=== PATIENT | female | born 1935 | race Caucasian/White ===

== ENCOUNTER 2022-03-02 17:53 | Emergency (ER) | payer OTHER ==
[2022-03-02] MEDS ORDERED: MORPHINE 2 MG/ML SYR ONE ×2 (18:19→20:05)
[2022-03-02] MEDS ORDERED: ONDANSETRON 4 MG/2 ML VIAL ONE (18:19)
[2022-03-02 18:27] LABS: Absolute Lymphocytes (CBC) 0.9 K/uL (0.7-4.9); Hematocrit 30.7 % (36.0-45.0); Lymphocytes % 11.6 % (15.3-44.8); MCV 90.8 fL (80-100); MPV 7.8 fL (7.6-11.3); RBC Red Blood Cell Count 3.38 M/uL (3.86-4.86)
[2022-03-02 18:30] LABS: Protime INR 1.05
[2022-03-02 18:42] LABS: Albumin 3.5 g/dL (3.4-5.0); Bilirubin Direct 0.1 mg/dL (0-0.2); Bilirubin Total 0.4 mg/dL (0.2-1.0); Potassium 4.6 mmol/L (3.5-5.1); Protein, Total 6.5 g/dL (6.4-8.2); Troponin High Sensitivity 18.6 pg/mL (<58.9)
--- NOTE | 2022-03-02 19:08 | RAD REPORT ---
EXAM DESCRIPTION: RAD - Humerus Right - 03/02/2022 6:49 pm CLINICAL HISTORY: PAIN COMPARISON: No comparisons FINDINGS: No acute fracture or dislocation seen.
--- NOTE | 2022-03-02 19:08 | RAD REPORT ---
EXAM DESCRIPTION: RAD - Humerus Left - 03/02/2022 6:50 pm CLINICAL HISTORY: PAIN COMPARISON: No comparisons FINDINGS: Mildly displaced fracture of the distal clavicle is seen. No dislocation evident. Questionable fracture of the medial epicondyle of the distal humerus, correlation with point tenderne ss in this region would be recommended.
--- NOTE | 2022-03-02 19:09 | RAD REPORT ---
EXAM DESCRIPTION: RAD - Femur Left - 03/02/2022 6:50 pm CLINICAL HISTORY: PAIN COMPARISON: No comparisons FINDINGS: No acute fracture or dislocation seen.
[2022-03-02] MEDS ORDERED: NA CHLORIDE 0.9% 500 ML ONE (19:16)
--- NOTE | 2022-03-02 19:51 | RAD REPORT ---
EXAM DESCRIPTION: CT - Head C Spine Cap Wo Con - 03/02/2022 7:34 pm CLINICAL HISTORY: Trauma, head and neck injury. Chest, abdomen and pelvis pain. fall/syncope, head/neck/pelvic pain COMPARISON: No comparisons TECHNIQUE: CT head without contrast. CT cervical spine without contrast with coronal and sagittal reformatted images. CT chest, abdomen and pelvis without contrast with coronal and sagittal reformatted images of the [facility]. All CT scans are performed using dose optimization technique as appropriate and may include automated exposure control or mA/KV adjustment according to patient size. FINDINGS: CT HEAD WITHOUT CONTRAST: No intracranial hemorrhage, hydrocephalus or extra-axial fluid collection. Moderate generalized brain atrophy is present with moderate periventricular and deep white matter chronic microvascular ischemi c changes. No areas of brain edema or midline shift. The paranasal sinuses and mastoids are clear. The calvarium is intact. Small left scalp hematoma. [place] tebral atherosclerosis. CT CERVICAL SPINE WITHOUT CONTRAST: No fracture or subluxation. Mild lower cervical degenerative changes. The prevertebral soft tissues a re normal in thickness. CT CHEST, ABDOMEN, PELVIS WITHOUT CONTRAST: NOTE: Lack of contrast is a significant limitation in the assessment of trauma related findings. Spec ifically, solid organ, vascular and bowel evaluation is significantly limited. The lungs are clear.No pneumothorax or pericardial/pleural fluid. No evidence of intra-abdominal visceral injury, free fluid or free air is seen within the above detai led limitations. No concerning pelvic findings. Mild fracture of the distal left clavicle is seen. Moderate soft tissue swelling adjacent to the left greater trochanter. IMPRESSION: Mildly displaced fracture is present affecting the distal left clavicle. Elsewhere, no t rauma related abnormality is discerned.
--- NOTE | 2022-03-02 20:08 | EDPHYS ---
Physician Documentation [facility] Name: Vickie Santiago Age: 86 yrs Sex: Female : 1935 Arrival Date: 03/02/2022 Time: 17:55 Bed 4 Private MD: ED Physician Brody Viera HPI: 03/02 18:00 This 86 yrs old Female presents to ER via Ambulatory with complaints of Fall Injury. rn 18:00 Onset: The symptoms/episode began/occurred just prior to arrival. Associated injuries: rn The patient sustained injury to the head, neck injury, left hip, right shoulder/arm, left shoulder. Severity of symptoms: At their worst the symptoms were moderate, in the emergency department the symptoms are unchanged. The patient has not experienced similar symptoms in the past. The patient has not recently seen a physician. Pt does not recall what happened, woke up on floor, not sure if fell then passed out or passed out then fell. Reports pain to head/neck/shoulder/left hip. . Historical: - Allergies: 19:58 No Known Allergies; jb4 - Home Meds: 17:59 Unable to obtain [Active]; jl7 - PMHx: 19:58 Dementia; HTN; COPD; Heart murmur; CHF; Macular degeneration; NSTEMI; Anxiety; jb4 HyperLipidemia; Acute Kidney Failure; Vit D deficiency; - PSHx: 17:59 Unable to Obtain; jl7 - Immunization history:: Adult Immunizations unknown. - Social history:: Smoking status: unknown. - Family history:: not pertinent. - Hospitalizations: : No recent hospitalization is reported. ROS: 18:00 Constitutional: Negative for fever, chills, and weight loss, Eyes: Negative for injury, rn pain, redness, and discharge, Neck: + neck pain Cardiovascular: Negative for chest pain, palpitations, and edema, Respiratory: Negative for shortness of breath, cough, wheezing, and pleuritic chest pain, Abdomen/GI: Negative for abdominal pain, nausea, vomiting, diarrhea, and constipation, Back: Negative for injury and pain, MS/Extremity: + left and right shoulder pain, + left hip pain Skin: Negative for injury, rash, and discoloration, Neuro: Negative for numbness, tingling, and seizure. Exam: 18:00 Constitutional: This is a well developed, well nourished patient who is awake, alert, rn and in no acute distress. Head/Face: Normocephalic, atraumatic. Eyes: Periorbital areas with no swelling, redness, or edema. ENT: dry MM, no oral trauma Neck: no midline tenderness Cardiovascular: Regular rate and rhythm. No pulse deficits. Respiratory: No increased work of breathing, no retractions or nasal flaring. Abdomen/GI: Soft, non-tender Back: No spinal tenderness. Skin: Warm, dry MS/ Extremity: Pulses equal, no cyanosis. + mild painful ROM left and right shoulder, no deformity, + left hip pain and painful ROM. Neuro: Awake and alert, GCS 15 19:56 ECG was reviewed by the Attending Physician. [facility] Vital Signs: 19:51 BP 148 / 73; Pulse 68; Resp 16 S; Temp 97.9(O); Pulse Ox 99% on R/A; as6 20:30 BP 153 / 84; Pulse 79; Resp 12; Pulse Ox 99% on R/A; jb4 Angelica Coma Score: 19:10 Eye Response: spontaneous(4). Verbal Response: oriented(5). Motor Response: obeys jb4 commands(6). Total: 15. 20:00 Eye Response: spontaneous(4). Verbal Response: oriented(5). Motor Response: obeys jb4 commands(6). Total: 15. Trauma Score (Adult): 19:10 Eye Response: spontaneous(1); Verbal Response: confused(1); Motor Response: obeys jb4 commands(2); Systolic BP: > 89 mm Hg(4); Respiratory Rate: 10 to 29 per min(4); [place] Score: 14; Trauma Score: 12 20:00 Eye Response: spontaneous(1); Verbal Response: confused(1); Motor Response: obeys jb4 commands(2); Systolic BP: > 89 mm Hg(4); Respiratory Rate: 10 to 29 per min(4); Angelica Score: 14; Trauma Score: 12 MDM: 17:56 Patient medically screened. rn 19:49 Differential diagnosis: closed head injury, contusion, fracture, laceration, multiple mattie trauma, sprain, strain. Data reviewed: vital signs, nurses notes, lab test result(s), EKG, radiologic studies, CT scan, plain films. Data interpreted: school lunch monitor: rate is 85 beats/min, rhythm is regular, Pulse oximetry: on room air is 99 %. Test interpretation: by ED physician or midlevel provider: ECG, plain radiologic studies. Counseling: I had a detailed discussion with the patient and/or guardian regarding: the historical points, exam findings, and any diagnostic results supporting the discharge/admit diagnosis, lab results, radiology results, the need for further work-up and treatment in the hospital. 03/02 17:59 Order name: Basic Metabolic Panel; Complete Time: 18:43 rn 03/02 17:59 Order name: CBC with Diff; Complete Time: 18:43 rn 08 18:00 Order name: CPK; Complete Time: 18:43 rn 08 18:00 Order name: Hepatic Function; Complete Time: 18:43 rn 08 18:00 Order name: Protime (+inr); Complete Time: 18:43 rn 08 18:00 Order name: Ptt, Activated; Complete Time: 18:43 rn 03/02 17:59 Order name: XRAY Humerus RIGHT; Complete Time: 19:48 rn 03/02 17:59 Order name: XRAY Humerus LEFT; Complete Time: 19:48 rn 08 17:59 Order name: XRAY Femur LEFT; Complete Time: 19:48 rn 08 18:00 Order name: Troponin High Sensitivity; Complete Time: 18:43 rn 08 19:14 Order name: Head C Spine Cap Wo Con; Complete Time: 20:10 EDMS 03/02 19:42 Order name: Pelvis XRAY; Complete Time: 20:51 [facility] 03/02 19:45 Order name: SARS RAPID; Complete Time: 20:51 [facility] 03/02 17:59 Order name: Labs collected and sent; Complete Time: 18:21 rn 08 18:00 Order name: EKG; Complete Time: 18:01 rn 08 18:00 Order name: Cardiac monitoring; Complete Time: 18:21 rn 08 18:00 Order name: EKG - Nurse/Tech; Complete Time: 19:54 rn 08 18:00 Order name: IV Saline Lock; Complete Time: 18:21 rn 08 18:00 Order name: NPO; Complete Time: 18:21 rn 08 18:00 Order name: O2 Per Protocol; Complete Time: 18:21 rn 03/02 18:00 Order name: O2 Sat Monitoring; Complete Time: 18:21 rn 03/02 20:25 Order name: Sling; Complete Time: 20:54 mattie EC:56 Rate is 68 beats/min. Rhythm is regular. QRS [place] is Normal. [place] interval is normal. QRS mattie interval is normal. QT interval is normal. No Q waves. T waves are Normal. No ST changes noted. Clinical impression: Normal ECG, NSR w/ Non-specific ST/T Changes, and No evidence of ischemia. Interpreted by me. Reviewed by me. Administered Medications: 18:20 Drug: morphine 2 mg Route: IVP; Infused Over: 4 mins; Site: right antecubital; hb 19:00 Follow up: Response: No adverse reaction; Marked relief of symptoms; Pain is decreased jb4 18:20 Drug: Zofran (Ondansetron) 4 mg Route: IVP; Site: right antecubital; hb 19:00 Follow up: Response: No adverse reaction; Marked relief of symptoms jb4 19:24 Drug: NS 0.9% 500 ml Route: IV; Rate: bolus; Site: right antecubital; jb4 20:15 Drug: morphine 2 mg Route: IVP; Infused Over: 4 mins; Site: right antecubital; jb4 20:50 Follow up: Response: No adverse reaction; Pain is unchanged, physician notified jb4 20:54 Not Given (Other Intervention Used): morphine 2 mg IVP once over 4 mins jb4 21:10 Drug: HYDROcodone-acetaminophen 5 mg-325 mg 1 tabs Route: PO; jb4 21:20 Follow up: Response: Medication administered at discharge. jb4 21:20 Not Given (Duplicate Order): [place] (HYDROcodone-acetaminophen) 5 mg-325 mg 2 tabs PO jb4 once Disposition Summary: 03/02/22 20:25 Discharge Ordered Location: Home(03/02/22 20:25) mattie Problem: new(03/02/22 20:25) mattie Symptoms: have improved(03/02/22 20:25) mattie Condition: Stable(03/02/22 20:25) mattie Diagnosis - Fall on same level, unspecified(03/02/22 20:25) mattie - Repeated falls mattie - Fracture of clavicle - distal(03/02/22 20:25) mattie - Dementia in other diseases classified elsewhere without behavioral mattie disturbance(03/02/22 20:25) Followup: mattie - With: Private Physician - When: 2 - 3 days - Reason: Recheck today's complaints, Continuance of care, Re-evaluation by your physician Followup: mattie - With: Chapincito Lowery MD - When: 2 - 3 days - Reason: Recheck today's complaints, Continuance of care, Re-evaluation by your physician Discharge Instructions: - Discharge Summary Sheet mattie - Clavicle Fracture mattie - Dementia mattie - Fall Prevention in the Home, Adult mattie - Clavicle Fracture, [id number] mattie - Fall Prevention in the Home, Adult, Wfox-it-Hcdk mattie - Fall Prevention in Hospitals, Adult mattie - Dementia, Fapu-yp-[id number] mattie Forms: - Medication Reconciliation Form mattie - Thank You Letter mattie - Antibiotic Education mattie - Prescription Opioid Use mattie Signatures: Dispatcher [employer] EDMS Brody Viera MD MD cha Nieto, Roman, MD MD rn Jeffrey Maynard, REPAIRER FINISHED METAL-C REPAIRER FINISHED METAL-Cla1 Dolores Lopez RN RN Jaziel Santamaria, RN RN jb4 Lulu Almanzar RN RN jl7 Antonio Morton, JULIANN RN as6 Corrections: (The following items were deleted from the chart) 19:14 18:03 Head C Spine CAP W Con+CT.RAD.BRZ ordered. EDSC EDMS 20:01 17:59 Allergies: Unable to obtain; jl7 jb4 20:01 17:59 PMHx: Unable to Obtain; jay patino 20:17 20:06 Inpatient Admission mattie mattie 20:17 20:06 Mihir Quach mattie mattie 20:17 20:06 Telemetry/MedSurg (observation) mattie mattie 20:17 20:06 Stable mattie mattie 20:17 20:06 new mattie mattie 20:17 20:06 have improved mattie mattie 20:17 20:06 Standard mattie mattie 20:17 20:06 mattie mattie 20:17 20:06 Fall on same level, unspecified mattie mattie 20:17 20:06 Fracture of clavicle - distal mattie mattie 20:17 20:06 Displaced fracture of base of neck of left femur mattie mattie 20:17 20:06 Dementia in other diseases classified elsewhere without behavioral disturbance rivera 20:18 19:43 Hip Left 2 View+RAD.RAD.BRZ ordered. EDMS EDMS 20: 19:50 Toribio ordered. as6 as6 21: 20:25 Ice pack ordered. mattie jb4 21:25 18:00 Urine Dipstick-Ancillary ordered. juliann jb4
--- NOTE | 2022-03-02 20:08 | ER ---
Nurse's Notes [facility] Name: Vickie Santiago Age: 86 yrs Sex: Female : 1935 Arrival Date: 03/02/2022 Time: 17:55 Bed 4 Private MD: Diagnosis: Fall on same level, unspecified;Repeated falls;Fracture of clavicle-distal;Dementia in other diseases classified elsewhere without behavioral disturbance Presentation: 03/02 17:56 Chief complaint: EMS states: Mechanical fall from standing, stood up and took a few jl7 steps then tripped and fell back, hit her head, loss of consciousness for a few seconds, c/o left hip, right arm pain and neck pain. Coronavirus screen: At this time, the client does not indicate any symptoms associated with coronavirus-19. Ebola Screen: No symptoms or risks identified at this time. Initial Sepsis Screen: Does the patient meet any 2 criteria? No. Patient's initial sepsis screen is negative. Does the patient have a suspected source of infection? No. Patient's initial sepsis screen is negative. Risk Assessment: Do you want to hurt yourself or someone else? Patient reports no desire to harm self or others. Onset of symptoms was March 02, 2022 at 17:20. Care prior to arrival: None. 17:56 Method Of Arrival: Ambulatory jl7 17:56 Acuity: ETHEL 2 jl7 Triage Assessment: 17:59 General: Appears in no apparent distress. uncomfortable, Behavior is calm, cooperative, jl7 appropriate for age. Pain: Complains of pain in neck, right arm and left hip. Neuro: Level of Consciousness is awake, alert, obeys commands, Oriented to person, place. Historical: - Allergies: 19:58 No Known Allergies; jb4 - Home Meds: 17:59 Unable to obtain [Active]; jl7 - PMHx: 19:58 Dementia; HTN; COPD; Heart murmur; CHF; Macular degeneration; NSTEMI; Anxiety; jb4 HyperLipidemia; Acute Kidney Failure; Vit D deficiency; - PSHx: 17:59 Unable to Obtain; jl7 - Immunization history:: Adult Immunizations unknown. - Social history:: Smoking status: unknown. - Family history:: not pertinent. - Hospitalizations: : No recent hospitalization is reported. Screenin:10 Abuse screen: Denies threats or abuse. Nutritional screening: No deficits noted. jb4 Tuberculosis screening: No symptoms or risk factors identified. Fall Risk Fall in past 12 months (25 points). Secondary diagnosis (15 points) dementia, IV access (20 points). Gait- Impaired (20 pts.). Mental Status- Overestimates/Forgets Limitations (15 pts.). Total [place] Fall Scale indicates High Risk Score (45 or more points). Fall prevention measures have been instituted. Side Rails Up X 2 Placed Close to Nursing Station Frequent Obs/Assessments Occuring Family Present and informed to notify staff if the need to leave the bedside As available patient and family educated on Fall Prevention Program and Strategies. Primary Survey: 19:10 NO uncontrolled hemorrhage observed. A: The client is awake and alert. The airway is jb4 patent. Breathing/Chest: Spontaneous respiratory effort, equal unlabored respirations, breath sounds clear bilaterally, regular pattern, symmetrical chest rise and fall. Circulation: No external hemorrhage present. Regular and strong central pulse, skin warm/dry/normal color. Disability Pupils are equal, round, reactive to light and accommodation. Client is alert. Exposure/Environment: All clothing and personal items were removed. Forensic evidence collection is not deemed to be indicated at this time. Items placed in patient belonging bag. A warming method has been applied: A warm blanket has been provided to the patient. 20:10 Reassessment Alertness and Airway: Awake and alert. The airway is patent. Breathing: jb4 Spontaneous respiratory effort, equal unlabored respirations, breath sounds clear bilaterally, regular pattern with symmetrical chest rise and fall. Circulation: No external hemorrhage noted. Regular and strong central pulse, skin warm/dry/normal color. Disability: Pupils Pupils are equal, round, reactive to light and accomodation. Alert. Assessment: 19:10 General: Appears in no apparent distress. uncomfortable, Behavior is calm, cooperative, jb4 appropriate for age. Pain: Complains of pain in left arm, left leg and neck. Neuro: Level of Consciousness is awake, alert, obeys commands, Oriented to person. Cardiovascular: Patient's skin is warm and dry. Respiratory: Airway is patent Respiratory effort is even, unlabored, Respiratory pattern is regular, symmetrical. GI: No signs and/or symptoms were reported involving the gastrointestinal system. : No signs and/or symptoms were reported regarding the genitourinary system. EENT: No signs and/or symptoms were reported regarding the EENT system. Derm: Skin is intact, Skin is pink, warm \T\ dry. Bruising that is green, yellow, on anterior aspect of left shoulder, dorsal aspect of left forearm, left tricep, right leg and left leg. Musculoskeletal: 20:30 Reassessment: Pt remains A\T\Ox1, family educated on pain management. Family verbalized [facility] understanding of d/c and follow up instructions. 21:22 Reassessment: Patient appears in no apparent distress at this time. Pt assisted to [facility] family vehicle via wheel chair. Pt moves all extremities and able to ambulate from wheelchair to car. Vital Signs: 19:51 BP 148 / 73; Pulse 68; Resp 16 S; Temp 97.9(O); Pulse Ox 99% on R/A; as6 20:30 BP 153 / 84; Pulse 79; Resp 12; Pulse Ox 99% on R/A; jb4 [place] Coma Score: 19:10 Eye Response: spontaneous(4). Verbal Response: oriented(5). Motor Response: obeys jb4 commands(6). Total: 15. 20:00 Eye Response: spontaneous(4). Verbal Response: oriented(5). Motor Response: obeys jb4 commands(6). Total: 15. Trauma Score (Adult): 19:10 Eye Response: spontaneous(1); Verbal Response: confused(1); Motor Response: obeys jb4 commands(2); Systolic BP: > 89 mm Hg(4); Respiratory Rate: 10 to 29 per min(4); Angelica Score: 14; Trauma Score: 12 20:00 Eye Response: spontaneous(1); Verbal Response: confused(1); Motor Response: obeys jb4 commands(2); Systolic BP: > 89 mm Hg(4); Respiratory Rate: 10 to 29 per min(4); Angelica Score: 14; Trauma Score: 12 ED Course: 17:55 Patient arrived in ED. jl7 17:56 Jeffery Quach MD is Attending Physician. rn 17:58 Triage completed. jl7 17:59 Arm band placed on right wrist. jl7 18:03 Dolores Lopez, RN is Primary Nurse. hb 18:21 Inserted saline lock: 22 gauge in right antecubital area, using aseptic technique. hb Blood collected. 18:51 XRAY Humerus RIGHT In Process Unspecified. EDMS 18:51 XRAY Humerus LEFT In Process Unspecified. EDMS 18:51 XRAY Femur LEFT In Process Unspecified. EDMS 19:10 Patient maintains SpO2 saturation greater than 95% on room air. Thermoregulation: warm jb4 blanket given to patient. 19:11 Attending Physician role handed off by Jeffery Quach MD mattie 19:11 Brody Viera MD is Attending Physician. mattie 19:36 Head C Spine Cap Wo Con In Process Unspecified. EDMS 20:02 Mihir Quach MD is Hospitalizing Provider. mattie 20:20 Pelvis XRAY In Process Unspecified. EDMS 20:25 Chapincito Lowery MD is Referral Physician. mattie 21:24 No provider procedures requiring assistance completed. IV discontinued, intact, jb4 bleeding controlled, No redness/swelling at site. Pressure dressing applied. Administered Medications: 18:20 Drug: morphine 2 mg Route: IVP; Infused Over: 4 mins; Site: right antecubital; hb 19:00 Follow up: Response: No adverse reaction; Marked relief of symptoms; Pain is decreased jb4 18:20 Drug: Zofran (Ondansetron) 4 mg Route: IVP; Site: right antecubital; hb 19:00 Follow up: Response: No adverse reaction; Marked relief of symptoms jb4 19:24 Drug: NS 0.9% 500 ml Route: IV; Rate: bolus; Site: right antecubital; jb4 20:15 Drug: morphine 2 mg Route: IVP; Infused Over: 4 mins; Site: right antecubital; jb4 20:50 Follow up: Response: No adverse reaction; Pain is unchanged, physician notified jb4 20:54 Not Given (Other Intervention Used): morphine 2 mg IVP once over 4 mins jb4 21:10 Drug: HYDROcodone-acetaminophen 5 mg-325 mg 1 tabs Route: PO; jb4 21:20 Follow up: Response: Medication administered at discharge. jb4 21:20 Not Given (Duplicate Order): [place] (HYDROcodone-acetaminophen) 5 mg-325 mg 2 tabs PO jb4 once Output: 21:24 Urine: 2ml (Voided); Total: 2ml. jb4 Outcome: 20:06 Decision to Hospitalize by Provider. mattie 20:25 Discharge ordered by . mattie 21:24 Discharged to home via wheelchair, with family. jb4 21:24 Condition: stable 21:24 Discharge instructions given to family, Instructed on discharge instructions, follow up and referral plans. Demonstrated understanding of instructions, follow-up care. 21:24 Patient's length of stay in the Emergency Department was greater than 2 hours. 21:26 Patient left the ED. jb4 Signatures: Dispatcher [employer] EDBrody Dangelo MD MD cha Nieto, Roman, MD MD rn Baxter, Heather, RN RN Jaziel Link RN RN jb4 Lulu Almanzar RN RN jl7 Antonio Morton RN RN as6 Corrections: (The following items were deleted from the chart) 20:01 17:59 Allergies: Unable to obtain; jl7 jb4 20:01 17:59 PMHx: Unable to Obtain; jl7 jb4 21:23 19:10 Derm: Skin is intact, Skin is pink, warm \T\ dry. Bruising that is green, yellow, jb4 on anterior aspect of left shoulder, left tricep and palmar aspect of left forearm jb4
--- NOTE | 2022-03-02 20:25 | RAD REPORT ---
EXAM DESCRIPTION: RAD - Pelvis - 03/02/2022 8:18 pm CLINICAL HISTORY: PAIN COMPARISON: No comparisons FINDINGS: Diffuse osteopenia is seen. No fracture or dislocation evident. If pain persists or progre sses, CT or MR imaging may be helpful for further evaluation.
[2022-03-02 20:36] LABS: SARS-CoV-2 Antigen Rapid Res Negative (Negative)
[2022-03-02] MEDS ORDERED: HYDROCODONE/APAP 5/325 MG TAB ONE (20:55)
[2022-03-02 22:28] VITALS: TEMP 97.9; O2SAT 99
[2022-03-02 22:29] VITALS: BP 153/84
--- NOTE | 2022-03-03 17:37 | EKG ---
Test Date: 2022-03-02 Test Time: 19:49:33 Marine Oiler: ROSAURA MEASUREMENT RESULTS: Intervals: Rate: 68 MA: 150 QRSD: 82 QT: 424 QTc: 450 [place]: P: 72 MA: 150 QRS: 20 T: 67 INTERPRETIVE STATEMENTS: Sinus rhythm with premature atrial complexes Otherwise normal ECG Compared to ECG 02/27/1999 21:19:00 Atrial premature complex(es) now present Incomplete right bundle-branch block no longer present Electronically Signed On 03-03-22 17:37:01 RECREATION PROGRAM COORDINATOR by Austyn Santamaria
== END 2022-03-02 21:26 | disposition home or self-care (01) ==
LOC: ER 17:53
DX: S42.032A Displaced fracture of lateral end of left clavicle, initial encounter for closed fracture (principal); W18.30XA Fall on same level, unspecified, initial encounter; R29.6 Repeated falls; F03.90 Unspecified dementia, unspecified severity, without behavioral disturbance, psychotic disturbance, mood disturbance, and anxiety; I10 Essential (primary) hypertension; Z20.822 Contact with and (suspected) exposure to COVID-19
CPT/HCPCS: 93005; 85025; 80048; 36415; 82550; 85610; 80076; 85730; 84484; 70450; 71250; 72125; 72170; 73060 ×2; 73552; 96375; 96374; 99284; 87811; J2270 ×2; J7040; J2405

== ENCOUNTER 2022-03-06 03:29 | Emergency (ER) | payer OTHER ==
[2022-03-06] MEDS ORDERED: MORPHINE 2 MG/ML SYR ONE ×2 (03:45→06:21)
[2022-03-06] MEDS ORDERED: ONDANSETRON 4 MG/2 ML VIAL ONE (03:46)
[2022-03-06 04:00] LABS: Hematocrit 26.9 % (36.0-45.0); Lymphocytes % 14.1 % (15.3-44.8); MCV 91.5 fL (80-100); MPV 8.6 fL (7.6-11.3); RBC Red Blood Cell Count 2.94 M/uL (3.86-4.86)
[2022-03-06 04:03] LABS: Protime INR 0.96
[2022-03-06 04:14] LABS: Potassium 3.9 mmol/L (3.5-5.1)
[2022-03-06 04:54] LABS: Urine Blood Negative (Negative); Urine Glucose Negative (Negative); Urine Protein Negative (Negative); Urine Specific Gravity 1.015 (1.005-1.030)
--- NOTE | 2022-03-06 06:13 | EDPHYS ---
Physician Documentation [facility] Name: Vickie Santiago Age: 86 yrs Sex: Female : 1935 Arrival Date: 03/06/2022 Time: 03:29 Bed 2 Private MD: ED Physician Jeffery Quach HPI: 03/06 03:33 This 86 yrs old Female presents to ER via Unassigned with complaints of Fall Injury. rn 03:33 Onset: The symptoms/episode began/occurred just prior to arrival. Associated injuries: rn The patient sustained left elbow, left leg. Severity of symptoms: At their worst the symptoms were moderate, in the emergency department the symptoms are unchanged. The patient has experienced similar episodes in the past. The patient has been recently seen by a physician:. EMS reports called out for fall, while was in bathroom, nursing staff able to help her ambulate to bed, then call 911. No blood thinners. Seen here recently for fall. Pt reports pain to left elbow and left hip. . Historical: - Allergies: 03:33 No Known Allergies; kd3 - Home Meds: 03:33 alprazolam 0.25 mg Oral tab 1 tab BID for anxiety [Active]; aspirin 81 mg Oral chew 1 kd3 tab once daily [Active]; atorvastatin 40 mg oral tab 1 tab once daily [Active]; benazepril 40 mg oral tab 1 tab once daily [Active]; diltiazem HCl 240 mg Oral Tb24 1 tab once daily [Active]; lutein 20 mg oral cap daily [Active]; rivastigmine tartrate 4.5 mg oral cap 1 cap 2 times per day [Active]; spironolactone 25 mg Oral tab 1 tab once daily [Active]; hydrocodone-acetaminophen 5-325 mg Oral tab 1 tab every 6 hours for pain [Active]; - PMHx: 03:33 Acute Kidney Failure; Anxiety; CHF; COPD; Dementia; Heart Murmur; Hyperlipidemia; HTN; kd3 macular degeneration; NSTEMI; vit d deficiency; - Immunization history:: Adult Immunizations up to date. - Social history:: Smoking status: unknown. - Immunization history: Last tetanus immunization: unknown. - Family history:: not pertinent. - Hospitalizations: : No recent hospitalization is reported. ROS: 03:33 Constitutional: Negative for fever, chills, and weight loss, Eyes: Negative for injury, rn pain, redness, and discharge, Neck: Negative for injury, pain, and swelling, Cardiovascular: Negative for chest pain, palpitations, and edema, Respiratory: Negative for shortness of breath, cough, wheezing, and pleuritic chest pain, Abdomen/GI: Negative for abdominal pain, nausea, vomiting, diarrhea, and constipation, Back: Negative for injury and pain, MS/Extremity: + pain to left elbow and left hip Skin: + bruising over extremities and head Neuro: Negative for headache, weakness, numbness, tingling, and seizure. Exam: 03:35 Constitutional: This is a well developed, well nourished patient who is awake, alert rn Head/Face: Ecchymosis to left forehead Eyes: Pupils equal round and reactive to light, extra-ocular motions intact. Neck: No midline cervical tenderness Chest/axilla: Mild tenderness over left clavicle Cardiovascular: Regular rate and rhythm. No pulse deficits. Respiratory: No increased work of breathing, no retractions or nasal flaring. Abdomen/GI: Soft, non-tender Skin: Warm, dry MS/ Extremity: Pulses equal, no cyanosis. Neurovascular intact. Painful ROM left elbow with moderate hematoma and ecchymosis. + tender left lateral/proximal femoral region with large ecchymosis that is already turning green Neuro: Awake and alert, GCS 15, moves all 4 extremities, oriented to person and situation, not time. Vital Signs: 03:41 BP 101 / 77; Pulse 73; Resp 15; Temp 97.2(O); Pulse Ox 98% on R/A; kd3 03:53 Weight 44 kg; kd3 04:11 BP 129 / 78; Pulse 71; Resp 18; Pulse Ox 98% on R/A; kd3 04:56 BP 146 / 65; Pulse 79; Resp 15; Pulse Ox 100% on R/A; kd3 05:42 BP 147 / 66; Pulse 81; Resp 15; Pulse Ox 100% on R/A; kd3 06:27 BP 124 / 74; Pulse 92; Resp 19; kd3 06:35 Pulse 92; Pulse Ox 100% on R/A; kd3 [place] Coma Score: 03:43 Eye Response: spontaneous(4). Verbal Response: oriented(5). Motor Response: obeys kd3 commands(6). Total: 15. Trauma Score (Adult): 03:43 Eye Response: spontaneous(1); Verbal Response: oriented(1); Motor Response: obeys kd3 commands(2); Systolic BP: > 89 mm Hg(4); Respiratory Rate: 10 to 29 per min(4); Angelica Score: 15; Trauma Score: 12 MDM: 03:30 Patient medically screened. rn 06:10 Differential diagnosis: abrasion, closed head injury, contusion, fracture, sprain, rn strain. Data reviewed: vital signs, nurses notes, lab test result(s), radiologic studies, CT scan, plain films, and as a result, I will discharge patient. Counseling: I had a detailed discussion with the patient and/or guardian regarding: the historical points, exam findings, and any diagnostic results supporting the discharge/admit diagnosis, lab results, radiology results, the need for outpatient follow up, to return to the emergency department if symptoms worsen or persist or if there are any questions or concerns that arise at home. Response to treatment: the patient's symptoms have markedly improved after treatment, and as a result, I will discharge patient. Special discussion: I discussed with the patient/guardian in detail that at this point there is no indication for admission to the hospital. It is understood, however, that if the symptoms persist or worsen the patient needs to return immediately for re-evaluation. Based on the history and exam findings, there is no indication for further emergent testing or inpatient evaluation. I discussed with the patient/guardian the need to see the orthopedic surgeon for further evaluation of the symptoms. ED course: No acute traumatic findings that were not found last visit. + known left clavicular fracture and soft tissue injuries. Lucency on elbow films could be soft tissue artifact but cannot exclude nondisplaced fractures, so will splint given pain and swelling in area. Otherwise will dc home with return precautions. . 12 03:32 Order name: CBC with Diff; Complete Time: 04:17 rn 03/06 03:32 Order name: Basic Metabolic Panel; Complete Time: 04:17 rn 03/06 03:32 Order name: Protime (+inr); Complete Time: 04:17 rn 03/06 03:32 Order name: Ptt, Activated; Complete Time: 04:17 rn 03/06 04:22 Order name: Urine Microscopic Only; Complete Time: 06:09 rn 03/06 04:54 Order name: Urine Dipstick-Ancillary; Complete Time: 06:09 EDMS 03/06 03:32 Order name: XRAY Femur LEFT rn 03/06 03:32 Order name: XRAY Elbow LEFT 3 view rn 03/06 03:35 Order name: XRAY Knee LEFT 2 view rn 03/06 03:35 Order name: XRAY Knee RIGHT 2 view rn 03/06 03:58 Order name: Head C Spine Cap Wo Con EDPR 03/06 03:32 Order name: IV Start; Complete Time: 03:40 rn 03/06 04:22 Order name: Urine Dipstick-Ancillary (obtain specimen); Complete Time: 04:56 rn 03/06 06:10 Order name: Sling; Complete Time: 06:41 rn 03/06 06:10 Order name: Splint - Elbow - Posterior; Complete Time: 06:41 rn Administered Medications: 03:45 Drug: morphine 2 mg Route: IVP; Infused Over: 4 mins; Site: right antecubital; pf1 06:26 Follow up: Response: No adverse reaction; Pain is decreased kd3 03:45 Drug: Zofran (Ondansetron) 4 mg Route: IVP; Site: right antecubital; pf1 06:26 Follow up: Response: No adverse reaction; Nausea is decreased kd3 06:26 Drug: morphine 2 mg Route: IVP; Infused Over: 4 mins; Site: right antecubital; kd3 06:41 Follow up: Response: No adverse reaction kd3 06:41 Drug: HYDROcodone-acetaminophen 5 mg-325 mg 1 tabs Route: PO; kd3 06:41 Follow up: Response: No adverse reaction kd3 Disposition Summary: 03/06/22 06:13 Discharge Ordered Location: Home rn Problem: new rn Symptoms: have improved rn Condition: Stable rn Diagnosis - Fall on same level, unspecified rn - Fracture of clavicle - Left, subacute rn - Contusion of left elbow rn Followup: rn - With: Chapincito Lowery MD - When: As needed - Reason: Recheck today's complaints, Re-evaluation by your physician Discharge Instructions: - Discharge Summary Sheet rn - Cast or Splint Care, Adult rn - Clavicle Fracture rn - Elbow Contusion rn - How to Use a Sling rn Forms: - Medication Reconciliation Form rn - Thank You Letter rn - Antibiotic environmental attorney - Prescription Opioid Use rn Signatures: Dispatcher [employer] EDMS Jeffery Quach MD MD rn Doucette, Kyli RN RN kd3 Margareth gates RN RN pf1 Corrections: (The following items were deleted from the chart) 03:58 03:51 Head C Spine Cap W Con ordered. EDMS EDMS
--- NOTE | 2022-03-06 06:13 | ER ---
Nurse's Notes [facility] Name: Vickie Santiago Age: 86 yrs Sex: Female : 1935 Arrival Date: 03/06/2022 Time: 03:29 Bed 2 Private MD: Diagnosis: Fall on same level, unspecified;Fracture of clavicle-Left, subacute;Contusion of left elbow Presentation: 03/06 03:30 Chief complaint: EMS states: PT was found on the bathroom floor with her walker. kd3 sodalis staff members were able to assist her up to a standing position and walk her back to her bed. Pt complains of left hip pain. Pt has had multiple falls in the past couple weeks since moving in. PT has multiple bruises to the left shoulder, left elbow and left hip and thigh area that appear to be healing. vital signs are stable. Coronavirus screen: Vaccine status: Patient reports receiving the 2nd dose of the covid vaccine. Ebola Screen: No symptoms or risks identified at this time. Risk Assessment: Do you want to hurt yourself or someone else? Patient reports no desire to harm self or others. Onset of symptoms was March 06, 2022. 03:30 Method Of Arrival: EMS: [facility] kd3 03:30 Acuity: ETHEL 3 kd3 03:42 Initial Sepsis Screen: Does the patient meet any 2 criteria? No. Patient's initial kd3 sepsis screen is negative. Does the patient have a suspected source of infection? No. Patient's initial sepsis screen is negative. 03:43 Care prior to arrival: None. Mechanism of Injury: Fall from standing position. Trauma kd3 event details: Injury occurred in the [facility], Injury occurred: at home. Injury occurred: March 06, 2022 Injury occurred at: 03:44. Triage Assessment: 03:33 General: Appears uncomfortable, Behavior is crying. Pain: Complains of pain in left kd3 hip. Pain: Complains of pain in left leg. Pain: Complains of pain in anterior aspect of left shoulder, left bicep, left antecubital area, posterior aspect of left shoulder, left tricep and left elbow. Neuro: Level of Consciousness is awake, alert, obeys commands, Oriented to person. Neuro: Oriented to person, place, time, situation. Cardiovascular: Patient's skin is warm and dry. Respiratory: Airway is patent Trachea midline Respiratory effort is even, unlabored, Respiratory pattern is regular, symmetrical. Injury Description: Bruise sustained to left elbow. Injury Description: Bruise sustained to left hip. Injury Description: Bruise sustained to lateral aspect of left thigh and lateral aspect of left knee. Trauma Activation: Physician: ED Physician; Name: Main; Notified At: 03:26; Arrived At: 03:26 Physician: General Surgeon; Name: ; Notified At: 03:26; Arrived At: Physician: Radiology; Name: ; Notified At: 03:26; Arrived At: Physician: Respiratory; Name: ; Notified At: 03:26; Arrived At: Physician: Lab; Name: ; Notified At: 03:26; Arrived At: Historical: - Allergies: 03:33 No Known Allergies; kd3 - Home Meds: 03:33 alprazolam 0.25 mg Oral tab 1 tab BID for anxiety [Active]; aspirin 81 mg Oral chew 1 kd3 tab once daily [Active]; atorvastatin 40 mg oral tab 1 tab once daily [Active]; benazepril 40 mg oral tab 1 tab once daily [Active]; diltiazem HCl 240 mg Oral Tb24 1 tab once daily [Active]; lutein 20 mg oral cap daily [Active]; rivastigmine tartrate 4.5 mg oral cap 1 cap 2 times per day [Active]; spironolactone 25 mg Oral tab 1 tab once daily [Active]; hydrocodone-acetaminophen 5-325 mg Oral tab 1 tab every 6 hours for pain [Active]; - PMHx: 03:33 Acute Kidney Failure; Anxiety; CHF; COPD; Dementia; Heart Murmur; Hyperlipidemia; HTN; kd3 macular degeneration; NSTEMI; vit d deficiency; - Immunization history:: Adult Immunizations up to date. - Social history:: Smoking status: unknown. - Immunization history: Last tetanus immunization: unknown. - Family history:: not pertinent. - Hospitalizations: : No recent hospitalization is reported. Screenin:43 Abuse screen: Denies threats or abuse. Denies injuries from another. Tuberculosis kd3 screening: No symptoms or risk factors identified. 03:49 [facility] ED Fall Risk Assessment (Adult) History of falling in the last 3 months, kd3 including since admission Yes- fall prone (multiple falls) (3 pts) Confusion or Disorientation No (0 pts) Intoxicated or Sedated No (0 pts) Impaired Gait Yes (1 pt) Mobility Assist Device Used Yes (1 pt) Altered Elimination Yes (1 pt) Score/Fall Risk Level 3 or more points= High Risk. Derrickpty Dumpty Scale Fall Assessment Tool (age< 18yrs) Age 13 years and above (1 pt) Gender Female (1 pt) Diagnosis Psych/ behavioral disorders ( 2 pts) Cognitive Impairments Not aware of limitations (3 pts) Environmental Factors History of falls or /toddler placed in bed (4 pts) Response to Surgery/Sedation/Anesthesia More than 48 hours/None (1 pt) Medication Usage Other medications/ None (1 pt) Fall Risk Score/ Level High Fall Risk: >/= 12 points [place] to surroundings. Nutritional screening: On Difficulty chewing/swallowing? Yes. Fall Risk Fall in past 12 months (25 points). Secondary diagnosis (15 points) dementia, IV access (20 points). Ambulatory Aid- Crutches/Cane/Walker (15 pts). Gait- Weak (10 pts.). Mental Status- Overestimates/Forgets Limitations (15 pts.). Total Morejon Fall Scale indicates High Risk Score (45 or more points). Primary Survey: 03:43 NO uncontrolled hemorrhage observed. A: The client is awake and alert. The airway is kd3 patent. Breathing/Chest: Spontaneous respiratory effort, equal unlabored respirations, breath sounds clear bilaterally, regular pattern, symmetrical chest rise and fall. Circulation: No external hemorrhage present. Regular and strong central pulse, skin warm/dry/normal color. Disability Pupils are equal, round, reactive to light and accommodation. Exposure/Environment: All clothing and personal items were removed. Forensic evidence collection is not deemed to be indicated at this time. Items placed in patient belonging bag. There is no evidence of uncontrolled external bleeding. Obvious injury(ies) are noted at this time: bruising A warming method has been applied: A warm blanket has been provided to the patient. 05:42 Reassessment Alertness and Airway: Awake and alert. The airway is patent. Breathing: kd3 Spontaneous respiratory effort, equal unlabored respirations, breath sounds clear bilaterally, regular pattern with symmetrical chest rise and fall. Circulation: No external hemorrhage noted. Regular and strong central pulse, skin warm/dry/normal color. Disability: Pupils Pupils are equal, round, reactive to light and accomodation. Secondary Survey: 03:43 HEENT: Head Other bruising to the left forehead and left neck Face No injury/deformity kd3 Eyes: No injury or deformity noted. Ears: clear bilaterally. Nose: clear to bilateral nares. Throat: No injury or deformity noted. Gastrointestinal: No deficits noted. : No deficits noted. Musculoskeletal: Circulation, motion, and sensation intact. Swelling present in left elbow. Assessment: 03:43 Neuro: Bhardwaj Agitation-Sedation Scale (RASS): 0 - Alert and Calm Level of kd3 Consciousness is awake, alert, obeys commands, Oriented to person, place, time, situation. Neuro: Pupils are PERRLA. EENT: No deficits noted. Cardiovascular: Patient's skin is warm and dry. Rhythm is regular. Respiratory: Airway is patent Trachea midline Respiratory effort is even, unlabored, Respiratory pattern is regular, symmetrical. GI: No deficits noted. : No deficits noted. Derm: No deficits noted. Injury Description: Bruise sustained to lateral aspect of left knee and lateral aspect of left thigh and left arm and left elbow and left tricep and posterior aspect of left shoulder and left antecubital area and left bicep and anterior aspect of left shoulder and left leg and pelvis and left hip. Vital Signs: 03:41 BP 101 / 77; Pulse 73; Resp 15; Temp 97.2(O); Pulse Ox 98% on R/A; kd3 03:53 Weight 44 kg; kd3 04:11 BP 129 / 78; Pulse 71; Resp 18; Pulse Ox 98% on R/A; kd3 04:56 BP 146 / 65; Pulse 79; Resp 15; Pulse Ox 100% on R/A; kd3 05:42 BP 147 / 66; Pulse 81; Resp 15; Pulse Ox 100% on R/A; kd3 06:27 BP 124 / 74; Pulse 92; Resp 19; kd3 06:35 Pulse 92; Pulse Ox 100% on R/A; kd3 Angelica Coma Score: 03:43 Eye Response: spontaneous(4). Verbal Response: oriented(5). Motor Response: obeys kd3 commands(6). Total: 15. Trauma Score (Adult): 03:43 Eye Response: spontaneous(1); Verbal Response: oriented(1); Motor Response: obeys kd3 commands(2); Systolic BP: > 89 mm Hg(4); Respiratory Rate: 10 to 29 per min(4); Angelica Score: 15; Trauma Score: 12 ED Course: 03:29 Patient arrived in ED. kd3 03:30 Jeffery Quach MD is Attending Physician. rn 03:33 Triage completed. kd3 03:35 Inserted saline lock: 22 gauge in right antecubital area, using aseptic technique. pf1 03:40 Protime (+inr) Sent. pf1 03:40 Ptt, Activated Sent. pf1 03:40 Basic Metabolic Panel Sent. pf1 03:40 CBC with Diff Sent. pf1 03:42 Arm band placed on right wrist. kd3 03:43 Patient maintains SpO2 saturation greater than 95% on room air. Thermoregulation: warm kd3 blanket given to patient. 03:43 Patient has correct armband on for positive identification. Placed in gown. Bed in low kd3 position. Call light in reach. Patient maintains SpO2 saturation greater than 95% on room air. Family notified that patient is in ED. Family accompanied patient. Client placed on continuous cardiac and pulse oximetry monitoring. NIBP monitoring applied. 03:49 No provider procedures requiring assistance completed. kd3 04:11 Monserrat Nayak, RN is Primary Nurse. kd3 04:20 XRAY Femur LEFT In Process Unspecified. EDMS 04:20 XRAY Elbow LEFT 3 view In Process Unspecified. EDMS 04:20 XRAY Knee LEFT 2 view In Process Unspecified. EDMS 04:21 XRAY Knee RIGHT 2 view In Process Unspecified. EDMS 04:38 Head C Spine Cap Wo Con In Process Unspecified. EDMS 04:56 Urine Microscopic Only Sent. kd3 04:57 Straight cath inserted, using sterile technique, Specimen obtained. Returned clear kd3 yellow urine. 06:12 Chapincito Lowery MD is Referral Physician. rn 06:36 IV discontinued, intact, bleeding controlled, No redness/swelling at site. Pressure kd3 dressing applied. Administered Medications: 03:45 Drug: morphine 2 mg Route: IVP; Infused Over: 4 mins; Site: right antecubital; pf1 06:26 Follow up: Response: No adverse reaction; Pain is decreased kd3 03:45 Drug: Zofran (Ondansetron) 4 mg Route: IVP; Site: right antecubital; pf1 06:26 Follow up: Response: No adverse reaction; Nausea is decreased kd3 06:26 Drug: morphine 2 mg Route: IVP; Infused Over: 4 mins; Site: right antecubital; kd3 06:41 Follow up: Response: No adverse reaction kd3 06:41 Drug: HYDROcodone-acetaminophen 5 mg-325 mg 1 tabs Route: PO; kd3 06:41 Follow up: Response: No adverse reaction kd3 Medication: 03:52 VIS not applicable for this client. kd3 Intake: 06:35 PO: 150ml (Water); Total: 150ml. kd3 Output: 04:58 Urine: 400ml (Straight Cath); Total: 400ml. kd3 Outcome: 05:43 Patient's length of stay in the Emergency Department was greater than [address] results Patient's length of stay extended due to 06:13 Discharge ordered by . rn 06:36 Discharged to home via wheelchair, with family. kd3 06:36 Condition: stable 06:36 Discharge instructions given to patient, family, Instructed on discharge instructions, follow up and referral plans. Demonstrated understanding of instructions, follow-up care. 06:41 Patient left the ED. kd3 Signatures: Dispatcher [employer] Jeffery Tucker MD MD rn Doucette, Kyli, RN RN kd3 Margareth gates RN RN pf1
[2022-03-06] MEDS ORDERED: HYDROCODONE/APAP 5/325 MG TAB ONE (06:35)
[2022-03-06 06:50] VITALS: TEMP 97.2
[2022-03-06 07:06] VITALS: O2SAT 100
[2022-03-06 07:08] VITALS: BP 124/74
--- NOTE | 2022-03-06 16:19 | RAD REPORT ---
EXAM DESCRIPTION: CT - Head C Spine Cap Wo Con - 03/06/2022 6:57 am CLINICAL HISTORY: 86 years Female fall injury TECHNIQUE: Multiple axial CT images of the brain, cervical spine, chest, abdomen and pelvis were per formed followed by sagittal and coronal reconstructed images. The CT study is performed according to ALARA (as low as reasonably achievable) or ALARA/IMAGE GENTLY, with automatic adjustment of mA and/or kV according to patient size. Performed on: 03/06/2022 at 4:05 AM COMPARISON: CT of the head, cervical spine, chest, abdomen and pelvis performed on 03/02/2022. FINDINGS: CT HEAD: There is no evidence of mass, acute mass effect or midline shift. There are no acute extra-axial flui d collections. There is no evidence of acute intracranial hemorrhage. The cerebral sulci and ventricles are prominent consistent with mild cerebral volume loss. There are scattered areas of decreased attenuation within the subcortical and periventricular white m atter most likely due to mild chronic microangiopathy. There is no significant mucosal thickening of the paranasal sinuses. The mastoid air cells are clear. The orbital contents are grossly unremarkable. No acute osseous abnormalities are identified. No focal soft tissue abnormalities are identified. CT CERVICAL SPINE: The cervical vertebrae are normal in height. There is normal alignment of the vertebrae. There is m oderate disc space narrowing at C4-C5 and C6-C7. There is mild degenerative spondylosis along the [place] tebral endplates at these levels. Bone mineralization is within normal limits. The atlanto-axial ar ticulation is preserved and the odontoid process is intact. There is normal alignment of the facet joints on the parasagittal images. There are mild degenerative changes of the cervical spine. There is no evidence of acute fracture or subluxation. There is mild to moderate canal stenosis throu ghout the cervical spine secondary to disc osteophyte complexes from C3-C4 through C6-C7. There is multilevel bilateral neural foraminal stenosis secondary to uncovertebral joint and facet joint hyper trophy. The paravertebral and paraspinal soft tissues are unremarkable. The lung apices are clear. CHEST: Lungs: The lungs are well expanded and are clear. There is minimal fibrosis or atelectasis in the angela g bases. There is a calcified granuloma in the superior segment of the left lower lobe. Heart: The heart is normal in size. There is no pericardial effusion. There are moderate coronary artery calcifications. Mediastinum: The mediastinum is unremarkable. The mediastinal vessels are normal in caliber and con tour. There are atherosclerotic calcifications along the thoracic aorta. Bones: No acute osseous abnormalities are identified. The thoracic vertebrae are normal in height and alignment. The bony thorax and sternum are intact. Again demonstrated is a mildly displaced fracture of the distal left clavicle. Soft tissues: No focal soft tissue abnormalities are identified. Lymphadenopathy: No pathologic hilar, mediastinal or axillary lymphadenopathy is identified. ABDOMEN/PELVIS: Liver: The liver is normal in size and configuration. There is a subtle focal area of decreased atten uation involving the posterior right hepatic lobe measuring approximately 3.4 x 2.6 cm in cross-secti onal diameter. This is nonspecific and could represent a hemangioma. Evaluation is limited without in travenous contrast. Liver attenuation is otherwise within normal limits. Spleen: The spleen is normal is size, configuration and attenuation. There are multiple calcified spl enic granulomas. Gallbladder and bile duct: The gallbladder is surgically absent. There is mild dilatation of the co mmon bile duct likely physiologic in nature following cholecystectomy. Pancreas: The pancreas is grossly normal in size and configuration. Adrenal Glands: The adrenal glands are normal in size and configuration. Kidneys: The kidneys are normal in size and configuration. There is no evidence of hydronephrosis. Th ere is no evidence of nephrolithiasis. No definite solid or cystic renal mass lesions are identified. Stomach: The stomach is grossly normal. There is no definite hiatal hernia. Bowel: The bowel gas pattern is non specific and non obstructive. Appendix: There is no CT evidence of acute appendicitis. Free air: There is no evidence of free air. Free fluid: There is no evidence of free fluid. Vasculature: The aorta is normal in caliber and contour. There are moderate atherosclerotic calcifica tions along the abdominal aorta and splenic artery. The inferior vena cava is grossly unremarkable. Lymphadenopathy: No pathologic lymphadenopathy is identified. Bladder: The bladder is well distended and smooth in contour. Reproductive: The uterus is grossly within normal limits. Bones: No acute osseous abnormalities are identified. Lumbar vertebrae are normal in height. There ar e chronic degenerative changes of the lumbar spine without significant change since the previous stud y. Soft tissues: There is moderate soft tissue swelling adjacent to the left. The degree of soft tissue swelling is slightly more prominent on the current examination than on the earlier study. IMPRESSION: CT HEAD: 1. No evidence of acute intracranial pathology. 2. 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 CT CERVICAL SPINE: 1. No evidence of acute osseous injury involving the cervical spine. 2. Degenerative changes of the cervical spine as described above. 3. Moderate disc space narrowing at C4-C5 and C6-C7 with multilevel bilateral neural foraminal sten osis. CT CHEST: 1. No evidence of acute intrathoracic disease. 2. Moderate coronary artery calcifications. 3. Mildly displaced fracture of the distal left clavicle as noted previously. 4. No definite acute osseous abnormality involving the thoracic spine or bony thorax. CT ABDOMEN AND PELVIS: 1. No evidence of acute intra-abdominal or intrapelvic pathology. 2. There is a subtle focal area of decreased attenuation involving the posterior right hepatic lobe measuring approximately 3.4 x 2.6 cm in cross-sectional diameter. This is nonspecific and could repr esent a hemangioma. Evaluation is limited without intravenous contrast. 3. Evidence of prior granulomatous disease. 4. Status post cholecystectomy with dilatation of the common bile duct, likely physiologic in natur e following cholecystectomy. 5. Moderate soft tissue swelling adjacent to the left hip. The degree of soft tissue swelling is sl ightly more prominent on the current examination than on the earlier study. 6. No definite acute osseous abnormality involving the lumbar spine or bony pelvis. Electronically signed by: Elen Barone DO 03/06/2022 5:27 AM [employer]ICAL PHYSICS TEACHER Due to temporary technical issues with the PACS/Fluency reporting system, reports are being signed by the in house radiologists without review as a courtesy to insure prompt reporting. The interpreting radiologist is fully responsible for the content of the report.
--- NOTE | 2022-03-06 16:26 | RAD REPORT ---
EXAM DESCRIPTION: RAD - Elbow Left 3 View - 03/06/2022 4:19 am CLINICAL HISTORY: 86 years Female Pain TECHNIQUE: Three x-ray views of the left elbow were performed on Date and time. COMPARISON: None FINDINGS: There is focal soft tissue swelling along the proximal lateral left forearm. There are antonio encies extending through the lateral epicondyle of the distal humerus and supracondylar region which could be related to overlying artifact. Nondisplaced fractures cannot be entirely excluded. The elbow joint is intact. No significant arthritic or degenerative changes are appreciated. No pathologic lyt ic or sclerotic bone lesions are seen. No definite joint effusion is identified. Bone mineralization is normal. IMPRESSION: 1. Focal soft tissue swelling along the proximal lateral left forearm. 2. Lucencies extending through the lateral epicondyle of the distal humerus and supracondylar regio n which could be related to overlying soft tissue artifact. Nondisplaced fractures cannot be entirely excluded. Correlate clinically for focal pain in this region. No definite joint effusion is identifi ed. Electronically signed by: Elen Barone DO 03/06/2022 4:38 AM [facility] Due to temporary technical issues with the PACS/Fluency reporting system, reports are being signed by the in house radiologists without review as a courtesy to insure prompt reporting. The interpreting radiologist is fully responsible for the content of the report.
--- NOTE | 2022-03-06 17:03 | RAD REPORT ---
EXAM DESCRIPTION: RAD - Femur Left - 03/06/2022 4:19 am CLINICAL HISTORY: 86 years Female PAIN TECHNIQUE: 2 x-ray views of the left femur were performed on 03/06/2022 at 4:06 AM. COMPARISON: None FINDINGS: There is no evidence of fracture or dislocation. There is narrowing of the knee joint with greatest involvement of the medial joint compartment. No focal pathologic lytic or sclerotic bone le sions are seen. Bone mineralization is normal. No acute soft tissue abnormalities are identified. Occasional vascular calcifications are noted. IMPRESSION: No evidence of acute osseous injury involving the left femur. There are degenerative mattie nges of the left knee. Electronically signed by: Elen Barone DO 03/06/2022 4:33 AM [employer] EX[employer]INER Due to temporary technical issues with the PACS/Fluency reporting system, reports are being signed by the in house radiologists without review as a courtesy to insure prompt reporting. The interpreting radiologist is fully responsible for the content of the report.
--- NOTE | 2022-03-06 18:41 | RAD REPORT ---
EXAM DESCRIPTION: RAD - Knee Right 2 View - 03/06/2022 4:19 am CLINICAL HISTORY: 86 years Female PAIN TECHNIQUE: 2 x-ray views of the right knee were performed on 03/06/2022 at 3:58 AM. COMPARISON: None FINDINGS: There is no evidence of fracture or dislocation. There is mild narrowing of the knee joint with greatest involvement of the medial joint compartment. There is also narrowing of the patellofem oral compartment. No focal lytic or sclerotic bone lesions are seen. Bone mineralization is decreased. No acute soft tissue abnormalities are identified. Occasional arterial vascular calcifications are no orlin. IMPRESSION: No evidence of acute osseous injury involving the right knee. There are mild degenerativ e changes of the right knee. Electronically signed by: Elen Barone DO 03/06/2022 4:30 AM [facility] [[email or web address]] Due to temporary technical issues with the PACS/Fluency reporting system, reports are being signed by the in house radiologists without review as a courtesy to insure prompt reporting. The interpreting radiologist is fully responsible for the content of the report.
--- NOTE | 2022-03-06 19:03 | RAD REPORT ---
EXAM DESCRIPTION: RAD - Knee Left 2 View - 03/06/2022 4:19 am CLINICAL HISTORY: The patient is 86 years old and is Female; PAIN TECHNIQUE: Two views of the left knee. COMPARISON: No relevant prior studies available. FINDINGS: Bones/joints: No effusion. No acute fracture. No dislocation. Soft tissues: Unremarkable. IMPRESSION: No acute fracture visualized. Electronically signed by: Lori Manzo MD 03/06/2022 4:25 AM [employer] Due to temporary technical issues with the PACS/Fluency reporting system, reports are being signed by the in house radiologists without review as a courtesy to insure prompt reporting. The interpreting radiologist is fully responsible for the content of the report.
== END 2022-03-06 06:41 | disposition home or self-care (01) ==
LOC: ER 03:29
DX: S42.002A Fracture of unspecified part of left clavicle, initial encounter for closed fracture (principal); S50.02XA Contusion of left elbow, initial encounter; W18.30XA Fall on same level, unspecified, initial encounter; N17.9 Acute kidney failure, unspecified; I10 Essential (primary) hypertension; F03.90 Unspecified dementia, unspecified severity, without behavioral disturbance, psychotic disturbance, mood disturbance, and anxiety
CPT/HCPCS: 85025; 80048; 36415; 85610; 85730; 70450; 71250; 72125; 73080; 73560 ×2; 73552; J2270 ×2; J2405; 51702; 81003; 81015; 96374; 96375; 99284

== ENCOUNTER 2022-03-07 10:06 | Emergency (ER) | payer OTHER ==
--- OUTSIDE RECORDS SUMMARY | 2022-03-07 10:14 | XMS REPORT | Continuity of Care Document ---
:1935 Author Organization [facility] t Address [address] [place] [address] [address]. [address] [place] [address] Care Team Providers Name Role Phone Christa Sanders NP Primary Care Physician PEDRO PABLO LEON Attending Clinician Unavailable CHRISTA SANDERS Attending Clinician Unavailable CHRISTA SANDERS Attending Clinician Unavailable Sergio Chapman MD Attending Clinician Madhav Steven MD Attending Clinician Prelsey Mendoza MD Attending Clinician PRESLEY MENDOZA Attending Clinician Unavailable Veena Lin RN Attending Clinician Unavailable PATRICK VELASQUEZ Attending Clinician Unavailable Connie Hernandez DO Attending Clinician Patrick Velasquez MD Attending Clinician Joanna Quezada LMSW Attending Clinician SUZAN CUTLER Attending Clinician Unavailable Suzan Vaca Attending Clinician MADHAV STEVEN Attending Clinician Unavailable MADHAV STEVEN Attending Clinician Unavailable Doctor Unassigned, [place] Attending Clinician Unavailable 2, [facility] Attending Clinician Unavailable Pob, [facility] Main Attending Clinician Unavailable Zahra Fall Attending Clinician ZAHRA FALL Attending Clinician Unavailable PRESLEY MENDOZA Admitting Clinician Unavailable PATRICK VELASQUEZ Admitting Clinician Unavailable Patrick Velasquez MD Admitting Clinician SUZAN CUTLER Admitting Clinician Unavailable MADHAV STEVEN Admitting Clinician Unavailable Payers Payer Name Policy Type Policy Number Effective Date Expiration Date Ivan JANE/[employer] [id number] 2021 MEDICARE ADVANTAGE 00:00:00 MEDICARE PART A [id number] 1998 \\T\\ B 00:00:00 Problems Condition Condition Condition Status Onset Resolution Last Treating Co mments Source Name Details Category Date Date Treatment Clinician Date Aortic Aortic Disease Active 2021-03 Univers stenosis, stenosis, 0-31 ity of moderate moderate 00:00: [place] [facility] Branch Troponin I Troponin I Disease Active 2021-03 U nivers above above 0-30 ity of reference reference 00:00: [place] range range 00 Medical Branch Other Other Disease Active 2021-03 Univers hyperlipid hyperlipid 0-30 it y of emia emia 00:00: [place] [facility] Branch CRISTOBAL (acute CRISTOBAL (acute Disease Active 2021-03 U nivers kidney kidney 0-30 ity of injury) injury) 00:00: [address] Branch Elevated Elevated Disease Active 2021-03 Unive rs brain brain 0-30 ity of natriureti natriureti 00:[place] c peptide c peptide 00 Medi marilee (BNP) (BNP) Branch level level Nonrheumat Nonrheumat Disease Active 2021-03 U nivers ic aortic ic aortic 0-30 ity of valve valve 00:00: [place] stenosis stenosis 00 Medica l Branch Fall, Fall, Disease Active 2021-03 Univers initial initial 0-29 ity of encounter encounter 00:00: [place] Hypertensi Hypertensi Disease Active 2021-0 U nivers on on 8-24 ity of 00:00: [place] [facility] Branch Osteoarthr Osteoarthr Disease Active 2021-0 U nivers itis of itis of 8-24 ity of multiple multiple 00:00: [place] joints joints Medical Branch Allergies, Adverse Reactions, Alerts Allergy Allergy Status Severity Reaction(s) Onset Inactive Treating Comm ents Source Name Type Date Date Clinician NO KNOWN Drug Active Univers ALLERGIE Class ity of S [facility] Social History Social Habit Start Date Stop Date Quantity Comments Source History SDOH University o f Alcohol Std [place] [facility] Drinks [facility] History SDOH University o f Alcohol Binge [place] [facility] History SDCA University o f Alcohol Comment [place] [facility] Exposure to 2022-01-14 2022-01-24 Not sure University SARS-CoV-2 00:00:00 16:58:00 [place] [facility] (event) Branch Alcohol intake 2022-01-21 2022-01-21 Lifetime University of 00:00:00 00:00:00 non-drinker [facility] [place] [facility] (finding) Branch Tobacco use and 2022-01-21 2022-01-21 Smokeless tobacco Un iversity of exposure 00:00:00 00:00:00 non-user [place] [facility] History SDOH 2021-06-14 2021-06-14 1 University o f Alcohol Frequency 00:00:00 00:00:00 [facility] edical [facility] Branch Sex Ass[birth year] At [birth year] Universit y of 00:00:00 00:00:[address] [facility] Smoking Status Start Date Stop Date Source Never smoked tobacco [facility] Tobacco smoking consumption [facility] [place] [facility] unknown Branch Medications Ordered Filled Start Stop Current Ordering Indication Dosage Frequency Signature Comments Components Source Medication Medication Date Date Medication? Clinician (SIG) Name Name rivastigmin 2021-03 Yes [id number] TAKE ONE Univers e tartrate 1-30 CAPSULE BY ity of 4.5 mg 00:00: MOUTH [place] capsule 00 EVERY Medical MORNING Branch AND TAKE ONE CAPSULE BY MOUTH EVERY EVENING rivastigmin 2021-03 Yes [id number] TAKE ONE Univers e tartrate 1-30 CAPSULE BY ity of 4.5 mg 00:00: MOUTH [place] capsule 00 EVERY Medical MORNING Branch AND TAKE ONE CAPSULE BY MOUTH EVERY EVENING mupirocin 2 2021-03 Yes [id number] Apply to Univers % ointment 1-23 area(s) 2 ity of 00:00: (two) [place] 00 times Medical daily. Branch Apply to affected areas lutein-zeax 2021-03 Yes [id number] 1{capsu Take 1 Univers anthin 1-23 le} capsule by ity of (OCUVITE 00:00: mouth [place] LUTEIN 25) 00 daily. Medical 25-5 mg Cap Branch brimonidine 2021-03 Yes [id number] 1[drp] Place 1 Univers (LUMIFY) 1-23 Drop in ity of 0.025 % 00:00: each eye 2 [place] Drop 00 (two) Medical times Branch daily. Miscellaneo 2021-03 Yes [id number] Use as Univers Medical 04-17 directed. ity of Supply Misc 00:00: 4*4 gauze [place] 00 Medical Branch Multivitami 2021-03 Yes [id number] 5mL Take 5 mL Univers ns-Iron-Min 1-23 by mouth 2 it y of erals Liqd 00:00: (two) [place] 00 times Medical daily. Branch Miscellaneo 2021-03 Yes [id number] Use as Univers Medical 04-17 directed. ity of Supply Pads 00:00: Non [place] 00 adherent Medical pads, 4*4 Branch mupirocin 2 2021-03 Yes [id number] Apply to Univers % ointment 1-23 area(s) 2 ity of 00:00: (two) [place] 00 times Medical daily. Branch Apply to affected areas lutein-zeax 2021-03 Yes [id number] 1{capsu Take 1 Univers anthin 1-23 le} capsule by ity of (OCUVITE 00:00: mouth [place] LUTEIN 25) 00 daily. Medical 25-5 mg Cap Branch brimonidine 2021-03 Yes [id number] 1[drp] Place 1 Univers (LUMIFY) 1-23 Drop in ity of 0.025 % 00:00: each [place] 2 [place] Drop 00 (two) Medical times Branch daily. Miscellaneo 2021-03 Yes [id number] Use as Univers Medical 04-17 directed. ity of Supply Misc 00:00: 4*4 gauze [place] 00 Medical Branch Multivitami 2021-03 Yes [id number] 5mL Take 5 mL Univers ns-Iron-Min 1-23 by mouth 2 it y of erals Liqd 00:00: (two) [place] 00 times Medical daily. Branch Miscellaneo 2021-03 Yes [id number] Use as Univers Medical 04-17 directed. ity of Supply Pads 00:00: Non [place] 00 adherent Medical pads, 4*4 Branch mupirocin 2 2021-03 Yes [id number] Apply to Univers % ointment 1-23 area(s) 2 ity of 00:00: (two) [place] 00 times Medical daily. Branch Apply to affected areas lutein-zeax 2021-03 Yes [id number] 1{capsu Take 1 Univers anthin 1-23 le} capsule by ity of (OCUVITE 00:00: mouth [place] LUTEIN 25) 00 daily. Medical 25-5 mg Cap Branch brimonidine 2021-03 Yes [id number] 1[drp] Place 1 Univers (LUMIFY) 1-23 Drop in ity of 0.025 % 00:00: each [place] 2 [place] Drop 00 (two) Medical times Branch daily. Miscellaneo 2021-03 Yes [id number] Use as Univers us Medical 04-17 directed. ity of Supply Misc 00:00: 4*4 [place]auze [place] Medical Branch Multivitami 2021-03 Yes [id number] 5mL Take 5 mL Univers ns-Iron-Min -23 by mouth 2 it y of erals Liqd 00:00: (two) [place] 00 times Medical daily. Branch Miscellaneo 2021-03 Yes [id number] Use as Univers us Medical 04-17 directed. ity of Supply Pads 00:00: Non [place] 00 adherent Medical pads, 4*4 Branch mupirocin 2 2021-03 Yes [id number] Apply to Univers % ointment 1-23 area(s) 2 ity of 00:00: (two) [place] 00 times Medical daily. Branch Apply to affected areas lutein-zeax 2021-03 Yes [id number] 1{capsu Take 1 Univers anthin 1-23 le} capsule by ity of (OCUVITE 00:00: mouth [place] LUTEIN 25) 00 daily. Medical 25-5 mg Cap Branch brimonidine 2021-03 Yes [id number] 1[drp] Place 1 Univers (LUMIFY) 1-23 Drop in ity of 0.025 % 00:00: each [place] 2 [place] Drop 00 (two) Medical times Branch daily. Miscellaneo 2021-03 Yes [id number] Use as Univers us Medical 04-17 directed. ity of Supply Misc 00:00: 4*4 gauze [place] 00 Medical Branch Multivitami 2021-03 Yes [id number] 5mL Take 5 mL Univers ns-Iron-Min 1-23 by mouth 2 it y of erals Liqd 00:00: (two) [place] 00 times Medical daily. Branch Miscellaneo 2021-03 Yes [id number] Use as [facility] Medical 04-17 directed. ity of Supply Pads 00:00: Non [place] 00 adherent Medical pads, 4*4 Branch mupirocin 2 2021-03 Yes [id number] Apply to Univers % ointment 1-23 area(s) 2 ity of 00:00: (two) [place] 00 times Medical daily. Branch Apply to affected areas lutein-zeax 2021-03 Yes [id number] 1{capsu Take 1 Univers anthin 1-23 le} capsule by ity of (OCUVITE 00:00: mouth [place] LUTEIN 25) 00 daily. Medical 25-5 mg Cap Branch brimonidine 2021-03 Yes [id number] 1[drp] Place 1 Univers (LUMIFY) 1-23 Drop in ity of 0.025 % 00:00: each eye 2 [place] Drop 00 (two) Medical times Branch daily. Miscellaneo 2021-03 Yes [id number] Use as [facility] Medical 04-17 directed. ity of Supply Misc 00:00: 4*4 gauze [place] 00 Medical Branch Multivitami 2021-03 Yes [id number] 5mL Take 5 mL Univers ns-Iron-Min 1-23 by mouth 2 it y of erals Liqd 00:00: (two) [place] 00 times Medical daily. Branch Miscellaneo 2021-03 Yes [id number] Use as [facility] Medical 04-17 directed. ity of Supply Pads 00:00: Non [place] 00 adherent Medical pads, 4*4 Branch tiotropium 2021-03 Yes [id number] 18ug Inhale 1 Univers (SPIRIVA 1-11 capsule in ity o f WITH 00:00: the [place] HANDIHALER) 00 morning. Medi marilee 18 mcg Branch inhalation tiotropium 2021-03 Yes [id number] 18ug Inhale 1 Univers (SPIRIVA 1-11 capsule in ity o f WITH 00:00: the [place] HANDIHALER) 00 morning. Medi marilee 18 mcg Branch inhalation tiotropium 2021-03 Yes [id number] 18ug Inhale 1 Univers (SPIRIVA 1-11 capsule in ity o f WITH 00:00: the [place] HANDIHALER) 00 morning. Medi marilee 18 mcg Branch inhalation tiotropium 2021-03 Yes [id number] 18ug Inhale 1 Univers (SPIRIVA 1-11 capsule in ity o f WITH 00:00: the [place] HANDIHALER) 00 morning. Medi marilee 18 mcg Branch inhalation tiotropium 2021-03 Yes [id number] 18ug Inhale 1 Univers (SPIRIVA 1-11 capsule in ity o f WITH 00:00: the [place] HANDIHALER) 00 morning. Medi marilee 18 mcg Branch inhalation tiotropium 2021-03 Yes [id number] 18ug Inhale 1 Univers (SPIRIVA 1-11 capsule in ity o f WITH 00:00: the [place] HANDIHALER) 00 morning. Medi marilee 18 mcg Branch inhalation ergocalcife 2021-03 Yes [id number] Take 1 Univers rol, 1-06 capsule by ity of vitamin d2, 00:00: mouth [place] 1,250 mcg 00 weekly. Medical (50,000 Branch unit) capsule ergocalcife 2021-03 Yes [id number] Take 1 Univers rol, 1-06 capsule by ity of vitamin d2, 00:00: mouth [place] 1,250 mcg 00 weekly. Medical (50,000 Branch unit) capsule ergocalcife 2021-03 Yes [id number] Take 1 Univers rol, 1-06 capsule by ity of vitamin d2, 00:00: mouth [place] 1,250 mcg 00 weekly. Medical (50,000 Branch unit) capsule ergocalcife 2021-03 Yes [id number] Take 1 Univers rol, 1-06 capsule by ity of vitamin d2, 00:00: mouth [place] 1,250 mcg 00 weekly. Medical (50,000 Branch unit) capsule ergocalcife 2021-03 Yes [id number] Take 1 Univers rol, 1-06 capsule by ity of vitamin d2, 00:00: mouth [place] 1,250 mcg 00 weekly. Medical (50,000 Branch unit) capsule ergocalcife 2021-03 Yes [id number] Take 1 Univers rol, 1-06 capsule by ity of vitamin d2, 00:00: mouth [place] 1,250 mcg 00 weekly. Medical (50,000 Branch unit) capsule ergocalcife 2021-03 Yes [id number] Take 1 Univers rol, 1-06 capsule by ity of vitamin d2, 00:00: mouth [place] 1,250 mcg 00 weekly. Medical (50,000 Branch unit) capsule ergocalcife 2021-03 Yes [id number] Take 1 Univers rol, 1-06 capsule by ity of vitamin d2, 00:00: mouth [place] 1,250 mcg 00 weekly. Medical (50,000 Branch unit) capsule aspirin 81 2021-03 Yes [id number] 81mg Take 1 U nivers mg chewable 1-03 tablet by ity of tablet 00:00: mouth in [place] 00 the Medical morning. Branch aspirin 81 2021-03 Yes [id number] 81mg Take 1 U nivers mg chewable 1-03 tablet by ity of tablet 00:00: mouth in [place] 00 the Medical morning. North Branch aspirin 81 2021-03 Yes [id number] 81mg Take 1 U nivers mg chewable 1-03 tablet by ity of tablet 00:00: mouth in [place] 00 the Medical morning. North Branch aspirin 81 2021-03 Yes [id number] 81mg Take 1 U nivers mg chewable 1-03 tablet by ity of tablet 00:00: mouth in [place] 00 the Medical morning. North Branch aspirin 81 2021-03 Yes [id number] 81mg Take 1 U nivers mg chewable 1-03 tablet by ity of tablet 00:00: mouth in [place] 00 the Medical morning. North Branch aspirin 81 2021-03 Yes [id number] 81mg Take 1 U nivers mg chewable 1-03 tablet by ity of tablet 00:00: mouth in [place] 00 the Medical morning. North Branch aspirin 81 2021-03 Yes [id number] 81mg Take 1 U nivers mg chewable 1-03 tablet by ity of tablet 00:00: mouth in [place] 00 the Medical morning. North Branch aspirin 81 2021-03 Yes [id number] 81mg Take 1 U nivers mg chewable 1-03 tablet by ity of tablet 00:00: mouth in [place] 00 the Medical morning. North Branch spironolact 2021-03- Yes [id number] 25mg Take 1 Univers one 25 mg 1-03 12-04 tablet by ity of tablet 00:00: 05:59 mouth in [place] 00 :00 the Medical morning Branch for 30 days. spironolact 2021-03- Yes [id number] 25mg Take 1 Univers one 25 mg 03-28 tablet by ity of tablet 00:00: 05:59 mouth in [place] 00 :00 [facility] for 30 days. spironolact 2021-03- Yes [id number] 25mg Take 1 Univers one 25 mg 03-28 tablet by ity of tablet 00:00: 05:59 mouth in [place] 00 :00 [facility] for 30 days. spironolact 2021-03- Yes [id number] 25mg Take 1 Univers one 25 mg 03-28 tablet by ity of tablet 00:00: 05:59 mouth in [place] 00 :00 [facility] for 30 days. spironolact 2021-03- Yes [id number] 25mg Take 1 Univers one 25 mg 03-28 tablet by ity of tablet 00:00: 05:59 mouth in [place] 00 :00 [facility] for 30 days. spironolact 2021-03- Yes [id number] 25mg Take 1 Univers one 25 mg 03-28 tablet by ity of tablet 00:00: 05:59 mouth in [place] 00 :00 [facility] for 30 days. spironolact 2021-03- Yes [id number] 25mg Take 1 Univers one 25 mg 03-28 tablet by ity of tablet 00:00: 05:59 mouth in [place] 00 :00 [facility] for 30 days. spironolact 2021-03 Yes 25mg 25 mg, Univ ers one 03-27 Oral, ity of (ALDACTONE) 14:45: DAILY, [place] tablet 25 00 First dose Medi marilee mg on Sun01/25/22 at 0945, Until Discontinu ed, Routine fluticasone 2021-03 Yes [id number] 1{puff} Inhale 1 Univers propion-azra 1-02 Puff every it y of meteroL 00:00: 12 [place] 250-50 00 (twelve) Medical mcg/dose hours. Branch inhalation disk calcium 2021-03 Yes [id number] 500mg Take 1 Uni vers carbonate 1-02 tablet by ity o f 500 mg 00:00: mouth in [place] calcium 00 the Medical (1,250 mg) morning Branch tablet and 1 tablet in the evening. Take with meals. HYDROcodone 2021-03 Yes [id number] 1{tbl} Take 1 Un yris -acetaminop 1-02 tablet by ity of hen 5-325 00:00: mouth [place] mg tablet 00 every 6 Medical (six) Branch hours as needed for Pain (scale 4-6). Indication s: acute pain fluticasone 2021-03 Yes [id number] 1{puff} Inhale 1 Univers propion-azra 1-02 Puff every it y of meteroL 00:00: 12 [place] 250-50 00 (twelve) Medical mcg/dose hours. Branch inhalation disk calcium 2021-03 Yes [id number] 500mg Take 1 Uni vers carbonate 1-02 tablet by ity o f 500 mg 00:00: mouth in [place] calcium 00 the Medical (1,250 mg) morning Branch tablet and 1 tablet in the evening. Take with meals. HYDROcodone 2021-03 Yes [id number] 1{tbl} Take 1 Un yris -acetaminop 1-02 tablet by ity of hen 5-325 00:00: mouth [place] mg tablet 00 every 6 Medical (six) Branch hours as needed for Pain (scale 4-6). Indication s: acute pain fluticasone 2021-03 Yes [id number] 1{puff} Inhale 1 Univers propion-azra 1-02 Puff every it y of meteroL 00:00: 12 [place] 250-50 00 (twelve) Medical mcg/dose hours. Branch inhalation disk calcium 2021-03 Yes [id number] 500mg Take 1 Uni vers carbonate 1-02 tablet by ity o f 500 mg 00:00: mouth in [place] calcium 00 the Medical (1,250 mg) morning Branch tablet and 1 tablet in the evening. Take with meals. HYDROcodone 2021-03 Yes [id number] 1{tbl} Take 1 Un yris -acetaminop 1-02 tablet by ity of hen 5-325 00:00: mouth [place] mg tablet 00 every 6 Medical (six) Branch hours as needed for Pain (scale 4-6). Indication s: acute pain fluticasone 2021-03 Yes [id number] 1{puff} Inhale 1 Univers propion-azra 1-02 Puff every it y of meteroL 00:00: 12 [place] 250-50 00 (twelve) Medical mcg/dose hours. Branch inhalation disk calcium 2021-03 Yes [id number] 500mg Take 1 Uni vers carbonate 1-02 tablet by ity o f 500 mg 00:00: mouth in [place] calcium 00 the Medical (1,250 mg) morning Branch tablet and 1 tablet in the evening. Take with meals. HYDROcodone 2021-03 Yes [id number] 1{tbl} Take 1 Un yris -acetaminop 1-02 tablet by ity of hen 5-325 00:00: mouth [place] mg tablet 00 every 6 Medical (six) Branch hours as needed for Pain (scale 4-6). Indication s: acute pain fluticasone 2021-03 Yes [id number] 1{puff} Inhale 1 Univers propion-azra 1-02 Puff every it y of meteroL 00:00: 12 [place] 250-50 00 (twelve) Medical mcg/dose hours. Branch inhalation disk calcium 2021-03 Yes [id number] 500mg Take 1 Uni vers carbonate 1-02 tablet by ity o f 500 mg 00:00: mouth in [place] calcium 00 the Medical (1,250 mg) morning Branch tablet and 1 tablet in the evening. Take with meals. HYDROcodone 2021-03 Yes [id number] 1{tbl} Take 1 Un yris -acetaminop 1-02 tablet by ity of hen 5-325 00:00: mouth [place] mg tablet 00 every 6 Medical (six) Branch hours as needed for Pain (scale 4-6). Indication s: acute pain fluticasone 2021-03 Yes [id number] 1{puff} Inhale 1 Univers propion-azra 1-02 Puff every it y of meteroL 00:00: 12 [place] 250-50 00 (twelve) Medical mcg/dose hours. Branch inhalation disk calcium 2021-03 Yes [id number] 500mg Take 1 Uni vers carbonate 1-02 tablet by ity o f 500 mg 00:00: mouth in [place] calcium 00 the Medical (1,250 mg) morning Branch tablet and 1 tablet in the evening. Take with meals. HYDROcodone 2021-03 Yes [id number] 1{tbl} Take 1 Un yris -acetaminop 1-02 tablet by ity of hen 5-325 00:00: mouth [place] mg tablet 00 every 6 Medical (six) Branch hours as needed for Pain (scale 4-6). Indication s: acute pain fluticasone 2021-03 Yes [id number] 1{puff} Inhale 1 Univers propion-azra 1-02 Puff every it y of meteroL 00:00: 12 [place] 250-50 00 (twelve) Medical mcg/dose hours. Branch inhalation disk calcium 2021-03 Yes [id number] 500mg Take 1 Uni vers carbonate 1-02 tablet by ity o f 500 mg 00:00: mouth in [place] calcium 00 the Medical (1,250 mg) morning Branch tablet and 1 tablet in the evening. Take with meals. HYDROcodone 2021-03 Yes [id number] 1{tbl} Take 1 Un yris -acetaminop 1-02 tablet by ity of hen 5-325 00:00: mouth [place] mg tablet 00 every 6 Medical (six) Branch hours as needed for Pain (scale 4-6). Indication s: acute pain fluticasone 2021-03 Yes [id number] 1{puff} Inhale 1 Univers propion-azra 1-02 Puff every it y of meteroL 00:00: 12 [place] 250-50 00 (twelve) Medical mcg/dose hours. Branch inhalation disk calcium 2021-03 Yes [id number] 500mg Take 1 Uni vers carbonate 1-02 tablet by ity o f 500 mg 00:00: mouth in [place] calcium 00 the Medical (1,250 mg) morning Branch tablet and 1 tablet in the evening. Take with meals. HYDROcodone 2021-03 Yes [id number] 1{tbl} Take 1 Un yris -acetaminop 1-02 tablet by ity of hen 5-325 00:00: mouth [place] mg tablet 00 every 6 Medical (six) Branch hours as needed for Pain (scale 4-6). Indication s: acute pain morpHINE (4 2021-03- No 4mg 4 mg, Slow Univers mg/mL) 03-26 IV Push, ity of injection 4 15:15: 14:37 ONCE, 1 [place] mg 00 :00 dose, On Medical [facility] 01/24/22 at 1015, Routine lisinopriL 2021-03 Yes 20mg 20 mg, Unive rs (PRINIVIL,Z 03-26 Oral, BID, it y of ESTRIL) 13:30: First [place] tablet 20 00 (after Medical mg last Branch modificati on) on Sun01/24/22 at 0830, Until Discontinu ed, Routine HYDROcodone 2021-03- Yes 1{tbl} 1 tablet, Univers -acetaminop 01-25 Oral, ity of hen (NORCO 23:34: 23:33 Q6HPRN, [place] 5) 5-325 mg 50 :50 Starting Medi marilee tablet 1 on Sun [place] Branch tablet 01/23/22 at 1834, Until Sun01/25/22 at 1833, Routine, Pain (scale 4-6) KCL 20 2021-03- No 40meq 40 mEq, Univer s mEq/15 mL 01-23 Oral, ity of solution 40 17:30: 17:59 ONCE, 1 [place] mEq 00 :00 dose, On Medical Sun [place] 01/23/22 at 1230, Routine enoxaparin 2021-03 Yes 40mg 40 mg, Unive rs (LOVENOX) Subcutaneo ity of injection 14:00: us, DAILY, [place] 40 mg 00 First dose Medical on Sun [place] [facility] 01/23/22 at 0900, Until Discontinu ed, Routine lisinopriL 2021-03 No 10mg 10 mg, Univ ers (PRINIVIL,Z 01-24 Oral, ity of ESTRIL) 14:00: 13:22 DAILY, [place] tablet 10 00 :54 First dose Medi marilee mg on Sun [place] Branch 01/23/22 at 0900, Until Discontinu ed, Routine hydralAZINE 2021-03 Yes 5mg 5 mg, Slow Univers (APRESOLINE IV Push, ity of ) injection 13:56: Q6HPRN, [place] 5 mg 55 Starting Medical on Sun Branch 01/23/22 at 0856, Until Discontinu ed, Routine, Other, SBP > 170 NaCl 0.9% 2021-03- No 1000mL at 60 Univ ers (NS) IV 001 mL/hr, IV ity of infusion 12:15: 14:09 Infusion, [place] 1,000 mL 00 :36 CONTINUOUS Medic al , Starting Branch on Sun01/23/22 at 0715, Until Sun01/24/22 at 0909, Routine calcium 2021-03 Yes 500mg 500 mg, Univer s carbonate 0-30 Oral, BID ity o f (OSCAL-500) 22:00: MEALS, [place] tablet 500 00 First dose Med ical mg on [place] Branch 01/22/22 at 1700, Until Discontinu ed, Routine cefTRIAXone 2021-03- Yes 1000mg 1,000 mg, Univers (ROCEPHIN) 0-30 11-06 IV ity of 1,000 mg in 17:30: 18:29 Piggyback, [place] NaCl 0.9% 00 :00 Q24H ABX, Medic al (NS) 50 mL 7 doses, Branc h MINI-BAG First dose on 01/22/22 at 1230, Last dose on 01/28/22 at 1230, Administer over 30 Minutes, 50 mL
Reas on for Anti-Infec tive: Documented Infection< br>Documen orlin Infection Site: Urine
D uration of Therapy: 7 days KCL 20 2021-03- No 40meq 40 mEq, Univer s mEq/15 mL 0-30 10-30 Oral, ity of solution 40 17:00: 17:11 ONCE, 1 [place] mEq 00 :00 dose, On Medical [facility] 01/22/22 at 1200, Routine ergocalcife 2021-03 Yes [id number] 50,000 Un yris rol 0-30 Units, ity of (vitamin 16:19: Oral, [place] d2) 13 QWEEKLY, Medical (CALCIFEROL First dose Br anch ) capsule on [place] 50,000 01/22/22 Units at 1130, Until Discontinu ed, Routine diltiazem 2021-03 Yes 240mg 240 mg, Univ ers XR 0-30 Oral, ity of (DILT-XR) 14:00: DAILY, [place] capsule 240 00 First dose Me dical mg on [place] Branch 01/22/22 at 0900, Until Discontinu ed, Routine tiotropium 2021-03 Yes 18ug 18 mcg, Univ ers (SPIRIVA) 0-30 Inhalation ity of inhalation 14:00: , DAILY, [place] 18 mcg 00 First dose Medical (after Branch last modificati on) on [place] 01/22/22 at 0900, Until Discontinu ed, Routine aspirin 2021-03 Yes 81mg 81 mg, Univers chewable 0-30 Oral, ity of tablet 81 14:00: DAILY, [place] mg 00 First dose Medical on [place] Branch 01/22/22 at 0900, Until Discontinu ed, Routine budesonide- 2021-03 Yes 2{puff} 2 Puff, Univers formoteroL 0-30 Inhalation ity of (SYMBICORT) 13:00: , BID, [place] 160-4.5 00 First dose Medica l mcg/actuati on [place] Branch on inhaler 01/22/22 2 Puff at 0800, Until Discontinu ed, Routine melatonin 2021-03 Yes 6mg 6 mg, Univers (MELATIN) 0-30 Oral, QHS, ity of tablet 6 mg 02:15: First dose [place] 00 on [facility] 01/21/22 Branch at 2115, Until Discontinu ed, Routine rosuvastati 2021-03 Yes 20mg 20 mg, Univ ers n (CRESTOR) 0-30 Oral, QHS, it y of tablet 20 02:00: First dose [place] mg 00 on [facility] 01/21/22 Branch at 2100, Until Discontinu ed, Routine tiotropium 2021-03- No 18ug 18 mcg, Uni vers (SPIRIVA) 0-30 10-30 Inhalation ity of inhalation 02:00: 03:47 , QHS, [place] 18 mcg 00 :04 First dose Medical (after Branch last modificati on) on [facility] 01/21/22 at 2100, Until Discontinu ed, Routine rivastigmin 2021-03 Yes 4.5mg 4.5 mg, Un yris e tartrate 0-29 Oral, ity of (EXELON) 22:00: QAM+PM, [place] capsule 4.5 00 First dose Me dical mg on [facility] Branch 01/21/22 at 1700, Until Discontinu ed, Routine NaCl 0.9% 2021-03- No 1000mL at 125 Uni vers (NS) IV 0-29 10-31 mL/hr, IV ity of infusion 19:00: 12:09 Infusion, [place] 1,000 mL 00 :25 CONTINUOUS Medic al , Starting Branch on [facility] 01/21/22 at 1400, Until 01/23/22 at 0709, Routine ondansetron 2021-03 Yes 4mg 4 mg, Slow Univers (ZOFRAN 0-29 IV Push, ity of (PF)) 18:45: Q6HPRN, [place] injection 4 04 Starting Medi marilee mg on [facility] Branch 01/21/22 at 1345, Until Discontinu ed, Routine, Nausea and Vomiting (N/V) diltiazem 2021-03 No 60mg 60 mg, Unive rs (CARDIZEM) 0- 10-30 Oral, Q6H, it y of tablet 60 18:45: 07:07 First dose [place] mg 00 :28 on [facility] Medical 01/21/22 Branch at 1345, Until Discontinu ed, Routine HEPARIN 2021-03- No 60U/kg 2,994 Univer s SODIUM 0- 10- Units (60 ity of (PORCINE) 18:45: 19:05 Units/kg [place] 1,000 00 :00 ?49.9 kg), Medical UNIT/ML IV Push, Branch BOLUS ACS ONCE, 1 ORDER SET dose, On [facility] 01/21/22 at 1345, CIRO HYDROcodone 2021-03- No 1{tbl} 1 tablet, Univers -acetaminop 0-01-23 Oral, ity of hen (NORCO 18:44: 18:43 Q6HPRN, [place] 5) 5-325 mg 54 :54 Starting Medi marilee tablet 1 on [facility] Branch tablet 01/21/22 at 1344, Until 01/23/22 at 1343, Routine, Pain (scale 4-6) acetaminoph 2021-03 Yes 650mg 650 mg, Un yris en 0- Oral, ity of (TYLENOL) 18:44: Q6HPRN, [place] tablet 650 41 Starting Medic al mg on [facility] Branch 01/21/22 at 1344, Until Discontinu ed, Routine, Pain (scale 1-3), Temp > 38.5 C heparin 2021-03- No 3000U FOR Univers (1,000 0- 10-30 REBOLUSING ity of unit/mL, 10 18:42: 18:21 , Starting [place] mL vial) 37 :22 on [facility] for 01/21/22 Branch Rebolusing at 1342, Until 01/22/22 at 1321, Routine
Dosing based on aPPT testing parameters (refer to continuous heparin drip order).
heparin 2021-2021- No 12U/kg/ 12 Univer s 25,000 0-29 10-30 h Units/kg/h ity of Units/250 18:42: 18:21 r ?49.9 kg [place] mL 37 :22 (5.988 Medical (Premixed mL/hr, Branch Bag) in rounded to 0.45 % NS 5.99 mL/hr), IV Infusion, TITRATE, Parameters in Admin. Instr., Starting on 01/21/22 at 1342
CA UTION - If LMWH given in ER, AVOID bolus and start next dose/drip 12 hrs after ER dosage.&nb sp; M ust program rate using programmab le infusion pump.&nbsp ; Page ck with the ordering provider first prior to any administra tion should the patient be on existing/a dditional anticoagul ant therapy. Rang e, Dosing and Testing: &nbs p;FOR [facility], AND [facility] ONLY &nbs p; - aPTT < 35: & nbsp;Bolus 5000 units, increase rate 300 units/hr&n bsp; - aPTT 35-44:&nbs p; Ankit gerard 3000 units, increase rate 200 units/hr&n bsp; - aPTT 45-54:&nbs p; In crease rate 100 units/hr&n bsp; - aPTT 55-85:&nbs p; NO CHANGE&nbs p; - aPTT 86-95:&nbs p; De crease rate 100 units/hr&n bsp; - aPTT 96-120:&nb sp; H old 30 minutes, decrease rate 150 units/hr&n bsp; - aPTT > 120: Hold 60 minutes, decrease rate 200 units/hr&a mp;nbsp;&n bsp;Check aPTT 6 hours after initiation , then Q6H after every change, aPTT Q12H once therapeuti c levels are reached.&n bsp; &nbs p; __ &n bsp;FOR [facility] ONLY - aPTT < 40: & nbsp;Bolus 5000 units, increase rate 300 units/hr&n bsp; - aPTT 40-49:&nbs p; Ankit gerard 3000 units, increase rate 200 units/hr&n bsp; - aPTT 50-59:&nbs p;&nbs p;Increase rate 100 units/hr&n bsp; - aPTT 60-85:&nbs p; NO CHANGE&nbs p; - aPTT 86-95:&nbs p; De crease rate 100 units/hr&n bsp; - aPTT 96-120:&nb sp; H old 30 minutes, decrease rate 150 units/hr&n bsp; - aPTT > 120: Hold 60 minutes, decrease rate 200 units/hr&n bsp; Check aPTT 6 hours after initiation , then Q6H after every change, aPTT Q12H once therapeuti c levels are reached.&n bsp; DO NOT ADJUST INITIAL BOLUS OR INITIAL INFUSION RATE.
ipratropium 2021-03 Yes 3mL 3 mL, Unive rs -albuteroL 0-29 Inhalation ity of (DUONEB) 18:40: , Q6HPRN, [place] 0.5 mg-3 19 Starting Medical mg(2.5 mg on Sat Branch base)/3 mL 01/21/22 nebulizer at 1340, solution 3 Until mL Discontinu ed, Routine, Wheezing, Shortness of Breath aspirin 2021-03- No 324mg 324 mg, Unive rs chewable 0-29 10- Oral, ity of tablet 324 18:00: 17:06 ONCE, 1 [place] mg 00 :00 dose, On Medical Sat Branch 01/21/22 at 1300, Routine FENTanyl PF 2021-03- No 50ug 50 mcg, Un yris (SUBLIMAZE 0-29 10- Slow IV ity o f (PF)) 16:45: 15:54 Push, [place] injection 00 :00 ONCE, 1 Medical 50 mcg dose, On Branch 01/21/22 at 1145, Routine NaCl 0.9% 2021-03- No 1000mL at 999 Uni vers (NS) bolus 0- 10-29 mL/hr, ity of infusion 16:45: 17:59 1,000 mL, [place] 1,000 mL 00 :00 IV Medical Infusion, Branch ONCE, 1 dose, On 01/21/22 at 1145, CIRO ondansetron 2021-03- No 4mg 4 mg, Slow Univers (ZOFRAN 0-13 10- IV Push, ity of (PF)) 21:45: 21:45 ONCE, 1 [place] injection 4 00 :00 dose, On Medi marilee mg [place] Branch 01/05/22 at 1645, CIRO FENTanyl PF 2021-03- No 50ug 50 mcg, Un yris (SUBLIMAZE 0-13 10-13 Slow IV ity o f (PF)) 21:45: 21:45 Push, [place] injection 00 :00 ONCE, 1 Medical 50 mcg dose, On Branch [facility] 01/05/22 at 1645, STAT rivastigmin 2021-0 Yes [id number] 4.5mg Take 1 Univers e tartrate 9-30 capsule by ity of 4.5 mg 00:00: mouth [place] capsule 00 every Medical morning Branch and evening. rivastigmin 2021-0 Yes [id number] 4.5mg Take 1 Univers e tartrate 9-30 capsule by ity of 4.5 mg 00:00: mouth [place] capsule 00 every Medical morning Branch and evening. rivastigmin 2021-0 Yes [id number] 4.5mg Take 1 Univers e tartrate 9-30 capsule by ity of 4.5 mg 00:00: mouth [place] capsule 00 every Medical morning Branch and evening. rivastigmin 2-0 Yes [id number] 4.5mg Take 1 Univers e tartrate 9-30 capsule by ity of 4.5 mg 00:00: mouth [place] capsule 00 every Medical morning Branch and evening. rivastigmin 2022-0 Yes [id number] 4.5mg Take 1 Univers e tartrate 9-30 capsule by ity of 4.5 mg 00:00: mouth [place] capsule 00 every Medical morning Branch and evening. rivastigmin 2022-0 Yes [id number] 4.5mg Take 1 Univers e tartrate 9-30 capsule by ity of 4.5 mg 00:00: mouth [place] capsule 00 every Medical morning Branch and evening. rivastigmin 2-0 Yes [id number] 4.5mg Take 1 Univers e tartrate 9-30 capsule by ity of 4.5 mg 00:00: mouth [place] capsule 00 every Medical morning Branch and evening. rivastigmin 2-0 Yes [id number] 4.5mg Take 1 Univers e tartrate 9-30 capsule by ity of 4.5 mg 00:00: mouth [place] capsule 00 every Medical morning Branch and evening. rivastigmin 2-0 Yes [id number] 4.5mg Take 1 Univers e tartrate 9-30 capsule by ity of 4.5 mg 00:00: mouth [place] capsule 00 every Medical morning Branch and evening. rivastigmin 2-0 Yes [id number] 4.5mg Take 1 Univers e tartrate 9-30 capsule by ity of 4.5 mg 00:00: mouth [place] capsule 00 every Medical morning Branch and evening. rivastigmin 2-0 Yes [id number] 4.5mg Take 1 Univers e tartrate 9-30 capsule by ity of 4.5 mg 00:00: mouth [place] capsule 00 every Medical morning Branch and evening. rivastigmin 2022-0 Yes [id number] 4.5mg Take 1 Univers e tartrate 9-30 capsule by ity of 4.5 mg 00:00: mouth [place] capsule 00 every Medical morning Branch and evening. rivastigmin 2022-0 Yes [id number] 4.5mg Take 1 Univers e tartrate 9-30 capsule by ity of 4.5 mg 00:00: mouth [place] capsule 00 every Medical morning Branch and evening. rivastigmin 2022-0 Yes [id number] 4.5mg Take 1 Univers e tartrate 9-30 capsule by ity of 4.5 mg 00:00: mouth [place] capsule 00 every Medical morning Branch and evening. rivastigmin 2022-0 Yes [id number] 4.5mg Take 1 Univers e tartrate 9-30 capsule by ity of 4.5 mg 00:00: mouth [place] capsule 00 every Medical morning Branch and evening. rivastigmin 2022-0 Yes [id number] 4.5mg Take 1 Univers e tartrate 9-30 capsule by ity of 4.5 mg 00:00: mouth [place] capsule 00 every Medical morning Branch and evening. rivastigmin 2-0 Yes [id number] 4.5mg Take 1 Univers e tartrate 9-30 capsule by ity of 4.5 mg 00:00: mouth [place] capsule 00 every Medical morning Branch and evening. rivastigmin 2-0 Yes [id number] 4.5mg Take 1 Univers e tartrate 9-30 capsule by ity of 4.5 mg 00:00: mouth [place] capsule 00 every Medical morning Branch and evening. rivastigmin 2-0 Yes [id number] 4.5mg Take 1 Univers e tartrate 9-30 capsule by ity of 4.5 mg 00:00: mouth [place] capsule 00 every Medical morning Branch and evening. rivastigmin 2-0 Yes [id number] 4.5mg Take 1 Univers e tartrate 9-30 capsule by ity of 4.5 mg 00:00: mouth [place] capsule 00 every Medical morning Branch and evening. rivastigmin 2-0 2- No [id number] 4.5mg Take 1 Univers e tartrate 9-30 11-30 capsule by it y of 4.5 mg 00:00: 00:00 mouth [place] capsule 00 :00 every Medical morning Branch and evening. rivastigmin 2021-0 Yes 3mg Take 1 Univ ers e tartrate 9-22 capsule by ity of 3 mg 00:00: mouth in [place] capsule 00 the Medical morning Branch and 1 capsule in the evening. rivastigmin 2022-0 2022- No 3mg Take 1 Uni vers e tartrate 9-22 09-30 capsule by it y of 3 mg 00:00: 00:00 mouth in [place] capsule 00 :00 the Medical morning Branch and 1 capsule in the evening. rivastigmin 2021- No 3mg Take 1 Uni vers e tartrate 12-1530 capsule by it y of 3 mg 00:00: 00:00 mouth in [place] capsule 00 :00 the Medical morning Branch and 1 capsule in the evening. ROSUVASTATI 0 Yes [id number] TAKE ONE Univers N 20 mg 9-19 TABLET BY ity of tablet 00:00: MOUTH AT [place] [facility] ROSUVASTATI 2021-0 Yes [id number] TAKE ONE Univers N 20 mg 9-19 TABLET BY ity of tablet 00:00: MOUTH AT [address] [facility] Yes [id number] TAKE ONE Univers N 20 mg 9-19 TABLET BY ity of tablet 00:00: MOUTH AT [address] [facility] 2021-0 Yes [id number] TAKE ONE Univers N 20 mg 9-19 TABLET BY ity of tablet 00:00: MOUTH AT [place] [facility] ROSUVASTATI 2021-0 Yes [id number] TAKE ONE Univers N 20 mg 9-19 TABLET BY ity of tablet 00:00: MOUTH AT [place] [facility] ROSUVASTATI 2021-0 Yes [id number] TAKE ONE Univers N 20 mg 9-19 TABLET BY ity of tablet 00:00: MOUTH AT [place] [facility] 2021-0 Yes [id number] TAKE ONE Univers N 20 mg 9-19 TABLET BY ity of tablet 00:00: MOUTH AT [place] [facility] ROSUVASTATI 2021-0 Yes [id number] TAKE ONE Univers N 20 mg 9-19 TABLET BY ity of tablet 00:00: MOUTH AT [address] ROSUVASTATI 2021-0 Yes [id number] TAKE ONE Univers N 20 mg 9-19 TABLET BY ity of tablet 00:00: MOUTH AT [address] ROSUVASTATI 2021-0 Yes [id number] TAKE ONE Univers N 20 mg 9-19 TABLET BY ity of tablet 00:00: MOUTH AT [address] [facility] 2021-0 Yes [id number] TAKE ONE Univers N 20 mg 9-19 TABLET BY ity of tablet 00:00: MOUTH AT [place] [facility] Yes [id number] TAKE ONE Univers N 20 mg 9-19 TABLET BY ity of tablet 00:00: [facility] AT [place] [facility] Yes [id number] TAKE ONE Univers N 20 mg 9-19 TABLET BY ity of tablet 00:00: MOUTH AT [place] [facility] Yes [id number] TAKE ONE Univers N 20 mg 9-19 TABLET BY ity of tablet 00:00: MOUTH AT [place] [facility] Yes [id number] TAKE ONE Univers N 20 mg 9-19 TABLET BY ity of tablet 00:00: MOUTH AT [place] [facility] Yes [id number] TAKE ONE Univers N 20 mg 9-19 TABLET BY ity of tablet 00:00: MOUTH AT [place] [facility] Yes [id number] TAKE ONE Univers N 20 mg 9-19 TABLET BY ity of tablet 00:00: MOUTH AT [place] [facility] Yes [id number] TAKE ONE Univers N 20 mg 9-19 TABLET BY ity of tablet 00:00: MOUTH AT [place] [facility] Yes [id number] TAKE ONE Univers N 20 mg 9-19 TABLET BY ity of tablet 00:00: MOUTH AT [place] [facility] Yes [id number] TAKE ONE Univers N 20 mg 9-19 TABLET BY ity of tablet 00:00: MOUTH AT [place] [facility] Yes [id number] TAKE ONE Univers N 20 mg 9-19 TABLET BY ity of tablet 00:00: MOUTH AT [place] [facility] Yes [id number] TAKE ONE Univers N 20 mg 9-19 TABLET BY ity of tablet 00:00: MOUTH AT [address] [facility] Yes [id number] TAKE ONE Univers N 20 mg 9-19 TABLET BY ity of tablet 00:00: MOUTH AT [place] [facility] ROSASTATI Yes [id number] TAKE ONE Univers N 20 mg 9-19 TABLET BY ity of tablet 00:00: MOUTH AT [address] Medical Branch ROSUVASTATI Yes [id number] TAKE ONE Univers N 20 mg 9-19 TABLET BY ity of tablet 00:00: MOUTH AT [address] Medical Branch RIVASTIGMIN Yes [id number] APPLY ONE Univers E 4.6 mg/24 9-15 [id number] PATCH TO it y of hour patch 00:00: THE SKIN [place] 00 EVERY Medical MORNING. Branch CALL OFFICE WHEN SCRIPT COMPLETE RIVASTIGMIN Yes [id number] APPLY ONE Univers E 4.6 mg/24 9-15 [id number] PATCH TO it y of hour patch 00:00: THE SKIN [place] 00 EVERY Medical MORNING. Branch CALL OFFICE WHEN SCRIPT COMPLETE RIVASTIGMIN Yes [id number] APPLY ONE Univers E 4.6 mg/24 9-15 [id number] PATCH TO it y of hour patch 00:00: THE SKIN [place] 00 EVERY Medical MORNING. Branch CALL OFFICE WHEN SCRIPT COMPLETE RIVASTIGMIN 2021- No [id number] APPLY ONE Univers E 4.6 mg/24 9-15 09-22 [id number] PATCH TO i ty of hour patch 00:00: 00:00 [place] 00 :00 EVERY Medical MORNING. Branch CALL OFFICE WHEN SCRIPT COMPLETE Diclofenac Yes [id number] APPLY 1 TO Univers Sodium 1 % 9-14 2 GRAMS TO ity of gel 00:00: AFFECTED AREA TWO Medical TIMES A Branch DAY NEEDED FOR PAIN (SCALE 4-6) Diclofenac Yes [id number] APPLY 1 TO Univers Sodium 1 % 9-14 2 GRAMS TO ity of gel 00:00: AFFECTED AREA TWO Medical TIMES A Branch DAY NEEDED FOR PAIN (SCALE 4-6) Diclofenac 0 Yes [id number] APPLY 1 TO Univers Sodium 1 % 9-14 2 GRAMS TO ity of gel 00:00: AFFECTED [place] AREA TWO Medical TIMES A Branch DAY NEEDED FOR PAIN (SCALE 4-6) Diclofenac 0 Yes [id number] APPLY 1 TO Univers Sodium 1 % 9-14 2 GRAMS TO ity of gel 00:00: AFFECTED [place] AREA TWO Medical TIMES A Branch DAY NEEDED FOR PAIN (SCALE 4-6) Diclofenac 2021-0 Yes [id number] APPLY 1 TO Univers Sodium 1 % 9-14 2 GRAMS TO ity of gel 00:00: AFFECTED AREA TWO Medical TIMES A Branch DAY NEEDED FOR PAIN (SCALE 4-6) Diclofenac 2021-0 Yes [id number] APPLY 1 TO Univers Sodium 1 % 9-14 2 GRAMS TO ity of gel 00:00: AFFECTED AREA TWO Medical TIMES A Branch DAY NEEDED FOR PAIN (SCALE 4-6) Diclofenac 2021-0 Yes [id number] APPLY 1 TO Univers Sodium 1 % 9-14 2 GRAMS TO ity of gel 00:00: AFFECTED AREA TWO Medical TIMES A Branch DAY NEEDED FOR PAIN (SCALE 4-6) Diclofenac 2021-0 Yes [id number] APPLY 1 TO Univers Sodium 1 % 9-14 2 GRAMS TO ity of gel 00:00: AFFECTED AREA TWO Medical TIMES A Branch DAY NEEDED FOR PAIN (SCALE 4-6) Diclofenac 2021-0 Yes [id number] APPLY 1 TO Univers Sodium 1 % 9-14 2 GRAMS TO ity of gel 00:00: AFFECTED AREA TWO Medical TIMES A Branch DAY NEEDED FOR PAIN (SCALE 4-6) Diclofenac 2021-0 Yes [id number] APPLY 1 TO Univers Sodium 1 % 9-14 2 GRAMS TO ity of gel 00:00: AFFECTED AREA TWO Medical TIMES A Branch DAY NEEDED FOR PAIN (SCALE 4-6) Diclofenac 2021-0 Yes [id number] APPLY 1 TO Univers Sodium 1 % 9-14 2 GRAMS TO ity of gel 00:00: AFFECTED AREA TWO Medical TIMES A Branch DAY NEEDED FOR PAIN (SCALE 4-6) Diclofenac 2021-0 Yes [id number] APPLY 1 TO Univers Sodium 1 % 9-14 2 GRAMS TO ity of gel 00:00: AFFECTED AREA TWO Medical TIMES A Branch DAY NEEDED FOR PAIN (SCALE 4-6) Diclofenac 2021-0 Yes [id number] APPLY 1 TO Univers Sodium 1 % 9-14 2 GRAMS TO ity of gel 00:00: AFFECTED AREA TWO Medical TIMES A Branch DAY NEEDED FOR PAIN (SCALE 4-6) Diclofenac 2021-0 Yes [id number] APPLY 1 TO Univers Sodium 1 % 9-14 2 GRAMS TO ity of gel 00:00: AFFECTED AREA TWO Medical TIMES A Branch DAY NEEDED FOR PAIN (SCALE 4-6) Diclofenac 2021-0 Yes [id number] APPLY 1 TO Univers Sodium 1 % 9-14 2 GRAMS TO ity of gel 00:00: AFFECTED [place] AREA TWO Medical TIMES A Branch DAY NEEDED FOR PAIN (SCALE 4-6) Diclofenac 2021-0 Yes [id number] APPLY 1 TO Univers Sodium 1 % 9-14 2 GRAMS TO ity of gel 00:00: AFFECTED AREA TWO Medical TIMES A Branch DAY NEEDED FOR PAIN (SCALE 4-6) Diclofenac 2021-0 Yes [id number] APPLY 1 TO Univers Sodium 1 % 9-14 2 GRAMS TO ity of gel 00:00: AFFECTED [place] AREA TWO Medical TIMES A Branch DAY NEEDED FOR PAIN (SCALE 4-6) Diclofenac 2021-0 Yes [id number] APPLY 1 TO Univers Sodium 1 % 9-14 2 GRAMS TO ity of gel 00:00: AFFECTED [place] AREA TWO Medical TIMES A Branch DAY NEEDED FOR PAIN (SCALE 4-6) Diclofenac 2021-0 Yes [id number] APPLY 1 TO Univers Sodium 1 % 9-14 2 GRAMS TO ity of gel 00:00: AFFECTED [place] AREA TWO Medical TIMES A Branch DAY NEEDED FOR PAIN (SCALE 4-6) Diclofenac 2021-0 Yes [id number] APPLY 1 TO Univers Sodium 1 % 9-14 2 GRAMS TO ity of gel 00:00: AFFECTED [place] AREA TWO Medical TIMES A Branch DAY NEEDED FOR PAIN (SCALE 4-6) Diclofenac 2021-0 Yes [id number] APPLY 1 TO Univers Sodium 1 % 9-14 2 GRAMS TO ity of gel 00:00: AFFECTED [place] AREA TWO Medical TIMES A Branch DAY NEEDED FOR PAIN (SCALE 4-6) Diclofenac 2021-0 Yes [id number] APPLY 1 TO Univers Sodium 1 % 9-14 2 GRAMS TO ity of gel 00:00: AFFECTED [place] AREA TWO Medical TIMES A Branch DAY NEEDED FOR PAIN (SCALE 4-6) Diclofenac 2021-0 Yes [id number] APPLY 1 TO Univers Sodium 1 % 9-14 2 GRAMS TO ity of gel 00:00: AFFECTED [place] AREA TWO Medical TIMES A Branch DAY NEEDED FOR PAIN (SCALE 4-6) Diclofenac 2021-0 Yes [id number] APPLY 1 TO Univers Sodium 1 % 9-14 2 GRAMS TO ity of gel 00:00: AFFECTED [place] 00 AREA TWO Medical TIMES A Branch DAY NEEDED FOR PAIN (SCALE 4-6) Diclofenac 2021-0 Yes [id number] APPLY 1 TO Univers Sodium 1 % 9-14 2 GRAMS TO ity of gel 00:00: AFFECTED [place] 00 AREA TWO Medical TIMES A Branch DAY NEEDED FOR PAIN (SCALE 4-6) Diclofenac 2022-0 Yes [id number] APPLY 1 TO Univers Sodium 1 % 9-14 2 GRAMS TO ity of gel 00:00: AFFECTED [place] 00 AREA TWO Medical TIMES A Branch DAY NEEDED FOR PAIN (SCALE 4-6) rivastigmin 2021-0 Yes 1.5mg Take 1 Uni vers e tartrate 8-26 capsule by ity of 1.5 mg 00:00: mouth [place] capsule 00 every Medical morning Branch and evening. rivastigmin 2021-0 Yes 1.5mg Take 1 Uni vers e tartrate 8-26 capsule by ity of 1.5 mg 00:00: mouth [place] capsule 00 every Medical morning Branch and evening. rivastigmin 2021-0 Yes 1.5mg Take 1 Uni vers e tartrate 8-26 capsule by ity of 1.5 mg 00:00: mouth [place] capsule 00 every Medical morning Branch and evening. rivastigmin 2021-0 Yes 1.5mg Take 1 Uni vers e tartrate 8-26 capsule by ity of 1.5 mg 00:00: mouth [place] capsule 00 every Medical morning Branch and evening. rivastigmin 2021-0 Yes 1.5mg Take 1 Uni vers e tartrate 8-26 capsule by ity of 1.5 mg 00:00: mouth [place] capsule 00 every Medical morning Branch and evening. rivastigmin 2021-0 202- No 1.5mg Take 1 Un yris e tartrate 8-26 12-15 capsule by it y of 1.5 mg 00:00: 00:00 mouth [place] capsule 00 :00 every Medical morning Branch and evening. rivastigmin 2021-0 202- No [id number] 1{patch Apply 1 Univers e 4.6 mg/24 10-21 [id number] } Patch to i ty of hour patch 00:00: 00:00 skin in [place] :00 the Medical morning. Branch When script completes, call office for refills. benazepriL 2021-0 Yes [id number] 40mg Take 1 U nivers 40 mg 7-25 tablet by ity of tablet 00:00: mouth in [place] 00 the Medical morning. Branch Diclofenac 2021-0 Yes [id number] APPLY 1 TO Univers Sodium 1 % 7-25 2 GRAMS TO ity of gel 00:00: AFFECTED [place] 00 AREA(S) Medical TWO TIMES Branch A DAY NEEDED FOR PAIN (SCALE 4-6) benazepriL 2021-0 Yes [id number] 40mg Take 1 U nivers 40 mg 7-25 tablet by ity of tablet 00:00: mouth in [place] 00 the Medical morning. Branch Diclofenac 2021-0 Yes [id number] APPLY 1 TO Univers Sodium 1 % 7-25 2 GRAMS TO ity of gel 00:00: AFFECTED [place] 00 AREA(S) Medical TWO TIMES Branch A DAY NEEDED FOR PAIN (SCALE 4-6) benazepriL 2021-0 Yes [id number] 40mg Take 1 U nivers 40 mg 7-25 tablet by ity of tablet 00:00: mouth in [place] the Medical morning. Branch benazepriL 2021-0 Yes [id number] 40mg Take 1 U nivers 40 mg 7-25 tablet by ity of tablet 00:00: mouth in [place] the Medical morning. Branch benazepriL 2021-0 Yes [id number] 40mg Take 1 U nivers 40 mg 7-25 tablet by ity of tablet 00:00: mouth in [place] the Medical morning. Branch benazepriL 2021-0 Yes [id number] 40mg Take 1 U nivers 40 mg 7-25 tablet by ity of tablet 00:00: mouth in [place] 00 the Medical morning. Branch benazepriL 2021-0 Yes [id number] 40mg Take 1 U nivers 40 mg 7-25 tablet by ity of tablet 00:00: mouth in [place] 00 the Medical morning. Branch benazepriL 2021-0 Yes [id number] 40mg Take 1 U nivers 40 mg 7-25 tablet by ity of tablet 00:00: mouth in [place] 00 the Medical morning. Branch benazepriL 2021-0 Yes [id number] 40mg Take 1 U nivers 40 mg 7-25 tablet by ity of tablet 00:00: mouth in [place] 00 the Medical morning. Branch benazepriL 2021-0 Yes [id number] 40mg Take 1 U nivers 40 mg 7-25 tablet by ity of tablet 00:00: mouth in [place] 00 the Medical morning. Branch benazepriL 2021-0 Yes [id number] 40mg Take 1 U nivers 40 mg 7-25 tablet by ity of tablet 00:00: mouth in [place] 00 the Medical morning. Branch benazepriL 2-0 Yes [id number] 40mg Take 1 U nivers 40 mg 7-25 tablet by ity of tablet 00:00: mouth in [place] 00 the Medical morning. Branch benazepriL 2021-0 Yes [id number] 40mg Take 1 U nivers 40 mg 7-25 tablet by ity of tablet 00:00: mouth in [place] 00 the Medical morning. Branch benazepriL 2021-0 Yes [id number] 40mg Take 1 U nivers 40 mg 7-25 tablet by ity of tablet 00:00: mouth in [place] 00 the Medical morning. Branch benazepriL 2021-0 Yes [id number] 40mg Take 1 U nivers 40 mg 7-25 tablet by ity of tablet 00:00: mouth in [place] the Medical morning. Branch benazepriL 2021-0 Yes [id number] 40mg Take 1 U nivers 40 mg 7-25 tablet by ity of tablet 00:00: mouth in [place] the Medical morning. Branch benazepriL 2021-0 Yes [id number] 40mg Take 1 U nivers 40 mg 7-25 tablet by ity of tablet 00:00: mouth in [place] the Medical morning. Branch benazepriL 2021-0 Yes [id number] 40mg Take 1 U nivers 40 mg 7-25 tablet by ity of tablet 00:00: mouth in [place] 00 the Medical morning. Branch benazepriL 2021-0 Yes [id number] 40mg Take 1 U nivers 40 mg 7-25 tablet by ity of tablet 00:00: mouth in [place] 00 the Medical morning. Branch benazepriL 2-0 Yes [id number] 40mg Take 1 U nivers 40 mg 7-25 tablet by ity of tablet 00:00: mouth in [place] 00 the Medical morning. Branch benazepriL 2-0 Yes [id number] 40mg Take 1 U nivers 40 mg 7-25 tablet by ity of tablet 00:00: mouth in [place] 00 the Medical morning. Branch benazepriL 2021-0 Yes [id number] 40mg Take 1 U nivers 40 mg 7-25 tablet by ity of tablet 00:00: mouth in [place] the Medical morning. Branch benazepriL 2021-0 Yes [id number] 40mg Take 1 U nivers 40 mg 7-25 tablet by ity of tablet 00:00: mouth in [place] the Medical morning. Branch benazepriL 2021-0 Yes [id number] 40mg Take 1 U nivers 40 mg 7-25 tablet by ity of tablet 00:00: mouth in [place] the Medical morning. Branch benazepriL 2021-0 Yes [id number] 40mg Take 1 U nivers 40 mg 7-25 tablet by ity of tablet 00:00: mouth in [place] the Medical morning. Branch benazepriL 2021-0 Yes [id number] 40mg Take 1 U nivers 40 mg 7-25 tablet by ity of tablet 00:00: mouth in [place] the Medical morning. Branch benazepriL 2021-0 Yes [id number] 40mg Take 1 U nivers 40 mg 7-25 tablet by ity of tablet 00:00: mouth in [place] the Medical morning. Branch benazepriL 2021-0 Yes [id number] 40mg Take 1 U nivers 40 mg 7-25 tablet by ity of tablet 00:00: mouth in [place] [facility] benazepriL 0 Yes [id number] 40mg Take 1 U nivers 40 mg 7-25 tablet by ity of tablet 00:00: mouth in [place] [facility] Diclofenac 2021- No [id number] APPLY 1 TO Univers Sodium 1 % 7-25 09-14 2 GRAMS TO it y of gel 00:00: 00:00 AFFECTED [place] 00 :00 AREA(S) Medical TWO TIMES Branch A DAY NEEDED FOR PAIN (SCALE 4-6) DICLOFENAC 2021-2021- No [id number] APPLY 1 TO Univers SODIUM 1 % 7-15 07-25 2 GRAMS TO it y of gel 00:00: 00:00 AFFECTED [place] 00 :00 AREA(S) Medical TWO TIMES Branch A DAY NEEDED FOR PAIN (SCALE 4-6) diltiazem 2021-0 Yes [id number] 240mg Take 1 U nivers 240 mg 24 6-25 capsule by ity of hr capsule 00:00: mouth [place] 00 daily. Medical Branch diltiazem 2021-0 Yes [id number] 240mg Take 1 U nivers 240 mg 24 6-25 capsule by ity of hr capsule 00:00: mouth [place] 00 daily. Medical Branch diltiazem 2021-0 Yes [id number] 240mg Take 1 U nivers 240 mg 24 6-25 capsule by ity of hr capsule 00:00: mouth [place] 00 daily. Medical Branch diltiazem 2021-0 Yes [id number] 240mg Take 1 U nivers 240 mg 24 6-25 capsule by ity of hr capsule 00:00: mouth [place] 00 daily. Medical Branch diltiazem 2021-0 Yes [id number] 240mg Take 1 U nivers 240 mg 24 6-25 capsule by ity of hr capsule 00:00: mouth [place] 00 daily. Medical Branch diltiazem 2021-0 Yes [id number] 240mg Take 1 U nivers 240 mg 24 6-25 capsule by ity of hr capsule 00:00: mouth [place] 00 daily. Medical Branch diltiazem 2021-0 Yes [id number] 240mg Take 1 U nivers 240 mg 24 6-25 capsule by ity of hr capsule 00:00: mouth [place] 00 daily. Medical Branch diltiazem 2021-0 Yes [id number] 240mg Take 1 U nivers 240 mg 24 6-25 capsule by ity of hr capsule 00:00: mouth [place] 00 daily. Medical Branch diltiazem 2021-0 Yes [id number] 240mg Take 1 U nivers 240 mg 24 6-25 capsule by ity of hr capsule 00:00: mouth [place] 00 daily. Medical Branch diltiazem 2021-0 Yes [id number] 240mg Take 1 U nivers 240 mg 24 6-25 capsule by ity of hr capsule 00:00: mouth [place] 00 daily. Medical Branch diltiazem 2021-0 Yes [id number] 240mg Take 1 U nivers 240 mg 24 6-25 capsule by ity of hr capsule 00:00: mouth [place] 00 daily. Medical Branch diltiazem 2021-0 Yes [id number] 240mg Take 1 U nivers 240 mg 24 6-25 capsule by ity of hr capsule 00:00: mouth [place] 00 daily. Medical Branch diltiazem 2021-0 Yes [id number] 240mg Take 1 U nivers 240 mg 24 6-25 capsule by ity of hr capsule 00:00: mouth [place] 00 daily. Medical Branch diltiazem 2021-0 Yes [id number] 240mg Take 1 U nivers 240 mg 24 6-25 capsule by ity of hr capsule 00:00: mouth [place] 00 daily. Medical Branch diltiazem 2021-0 Yes [id number] 240mg Take 1 U nivers 240 mg 24 6-25 capsule by ity of hr capsule 00:00: mouth [place] 00 daily. Medical Branch diltiazem 2021-0 Yes [id number] 240mg Take 1 U nivers 240 mg 24 6-25 capsule by ity of hr capsule 00:00: mouth [place] 00 daily. Medical Branch diltiazem 2021-0 Yes [id number] 240mg Take 1 U nivers 240 mg 24 6-25 capsule by ity of hr capsule 00:00: mouth [place] 00 daily. Medical Branch diltiazem 2021-0 Yes [id number] 240mg Take 1 U nivers 240 mg 24 6-25 capsule by ity of hr capsule 00:00: mouth [place] 00 daily. Medical Branch diltiazem 2021-0 Yes [id number] 240mg Take 1 U nivers 240 mg 24 6-25 capsule by ity of hr capsule 00:00: mouth [place] 00 daily. Medical Branch diltiazem 2021-0 Yes [id number] 240mg Take 1 U nivers 240 mg 24 6-25 capsule by ity of hr capsule 00:00: mouth [place] 00 daily. Medical Branch diltiazem 2021-0 Yes [id number] 240mg Take 1 U nivers 240 mg 24 6-25 capsule by ity of hr capsule 00:00: mouth [place] 00 daily. Medical Branch diltiazem 2021-0 Yes [id number] 240mg Take 1 U nivers 240 mg 24 6-25 capsule by ity of hr capsule 00:00: mouth [place] 00 daily. Medical Branch diltiazem 2021-0 Yes [id number] 240mg Take 1 U nivers 240 mg 24 6-25 capsule by ity of hr capsule 00:00: mouth [place] 00 daily. Medical Branch diltiazem 2021-0 Yes [id number] 240mg Take 1 U nivers 240 mg 24 6-25 capsule by ity of hr capsule 00:00: mouth [place] 00 daily. Medical Branch diltiazem 2021-0 Yes [id number] 240mg Take 1 U nivers 240 mg 24 6-25 capsule by ity of hr capsule 00:00: mouth [place] 00 daily. Medical Branch diltiazem 2021-0 Yes [id number] 240mg Take 1 U nivers 240 mg 24 6-25 capsule by ity of hr capsule 00:00: mouth [place] 00 daily. Medical Branch diltiazem 2021-0 Yes [id number] 240mg Take 1 U nivers 240 mg 24 6-25 capsule by ity of hr capsule 00:00: mouth [place] 00 daily. Medical Branch diltiazem 0 Yes [id number] 240mg Take 1 U nivers 240 mg 24 6-25 capsule by ity of hr capsule 00:00: mouth [place] 00 daily. Medical Branch diltiazem 0 Yes [id number] 240mg Take 1 U nivers 240 mg 24 6-25 capsule by ity of hr capsule 00:00: mouth [place] 00 daily. Medical Branch benazepriL 2021- No [id number] 20mg Take 1 Univers 20 mg 6-25 07-25 tablet by ity of tablet 00:00: 00:00 mouth [place] 00 :00 daily. Medical Branch rosuvastati 0 Yes [id number] 20mg Take 1 Univers n 20 mg 6-21 tablet by ity of tablet 00:00: mouth at [place] 00 bedtime. Medical Branch rosuvastati 0 Yes [id number] 20mg Take 1 Univers n 20 mg 6-21 tablet by ity of tablet 00:00: mouth at [place] 00 bedtime. Medical Branch rosuvastati 0 Yes [id number] 20mg Take 1 Univers n 20 mg 6-21 tablet by ity of tablet 00:00: mouth at [place] 00 bedtime. Medical Branch rosuvastati 0 Yes [id number] 20mg Take 1 Univers n 20 mg 6-21 tablet by ity of tablet 00:00: mouth at [place] 00 bedtime. Medical Branch rosuvastati 0 2021- No [id number] 20mg Take 1 Univers n 20 mg 6-21 09-19 tablet by ity of tablet 00:00: 00:00 mouth at [place] 00 :00 bedtime. Medical Branch MELOXICAM 2022-0 Yes [id number] TAKE ONE Univers 7.5 mg 4-29 TABLET BY ity of tablet 00:00: MOUTH 00 TWICE A Medical DAY WITH A Branch MEAL NEEDED FOR PAIN (SCALE 4-6) . DO NOT TAKE WITH IBRUPOFEN/ ALEVE MELOXICAM 2022-0 Yes [id number] TAKE ONE Univers 7.5 mg 4-29 TABLET BY ity of tablet 00:00: MOUTH 00 TWICE A Medical DAY WITH A Branch MEAL NEEDED FOR PAIN (SCALE 4-6) . DO NOT TAKE WITH IBRUPOFEN/ ALEVE MELOXICAM 2022-0 Yes [id number] TAKE ONE Univers 7.5 mg 4-29 TABLET BY ity of tablet 00:00: MOUTH 00 TWICE A Medical DAY WITH A Branch MEAL NEEDED FOR PAIN (SCALE 4-6) . DO NOT TAKE WITH IBRUPOFEN/ ALEVE MELOXICAM 2022-0 Yes [id number] TAKE ONE Univers 7.5 mg 4-29 TABLET BY ity of tablet 00:00: MOUTH 00 TWICE A Medical DAY WITH A Branch MEAL NEEDED FOR PAIN (SCALE 4-6) . DO NOT TAKE WITH IBRUPOFEN/ ALEVE MELOXICAM 2022-0 Yes [id number] TAKE ONE Univers 7.5 mg 4-29 TABLET BY ity of tablet 00:00: MOUTH 00 TWICE A Medical DAY WITH A Branch MEAL NEEDED FOR PAIN (SCALE 4-6) . DO NOT TAKE WITH IBRUPOFEN/ ALEVE MELOXICAM 2022-0 Yes [id number] TAKE ONE Univers 7.5 mg 4-29 TABLET BY ity of tablet 00:00: MOUTH 00 TWICE A Medical DAY WITH A Branch MEAL NEEDED FOR PAIN (SCALE 4-6) . DO NOT TAKE WITH IBRUPOFEN/ ALEVE MELOXICAM 2022-0 Yes [id number] TAKE ONE Univers 7.5 mg 4-29 TABLET BY ity of tablet 00:00: MOUTH 00 TWICE A Medical DAY WITH A Branch MEAL NEEDED FOR PAIN (SCALE 4-6) . DO NOT TAKE WITH IBRUPOFEN/ ALEVE MELOXICAM 2022-0 Yes [id number] TAKE ONE Univers 7.5 mg 4-29 TABLET BY ity of tablet 00:00: MOUTH 00 TWICE A Medical DAY WITH A Branch MEAL NEEDED FOR PAIN (SCALE 4-6) . DO NOT TAKE WITH IBRUPOFEN/ ALEVE MELOXICAM 2022-0 Yes [id number] TAKE ONE Univers 7.5 mg 4-29 TABLET BY ity of tablet 00:00: MOUTH [place] 00 TWICE A Medical DAY WITH A Branch MEAL NEEDED FOR PAIN (SCALE 4-6) . DO NOT TAKE WITH IBRUPOFEN/ ALEVE MELOXICAM 2022-0 Yes [id number] TAKE ONE Univers 7.5 mg 4-29 TABLET BY ity of tablet 00:00: MOUTH [place] 00 TWICE A Medical DAY WITH A Branch MEAL NEEDED FOR PAIN (SCALE 4-6) . DO NOT TAKE WITH IBRUPOFEN/ ALEVE MELOXICAM 2022-0 Yes [id number] TAKE ONE Univers 7.5 mg 4-29 TABLET BY ity of tablet 00:00: MOUTH [place] 00 TWICE A Medical DAY WITH A Branch MEAL NEEDED FOR PAIN (SCALE 4-6) . DO NOT TAKE WITH IBRUPOFEN/ ALEVE MELOXICAM 2022-0 Yes [id number] TAKE ONE Univers 7.5 mg 4-29 TABLET BY ity of tablet 00:00: MOUTH [place] 00 TWICE A Medical DAY WITH A Branch MEAL NEEDED FOR PAIN (SCALE 4-6) . DO NOT TAKE WITH IBRUPOFEN/ ALEVE MELOXICAM 2022-0 Yes [id number] TAKE ONE Univers 7.5 mg 4-29 TABLET BY ity of tablet 00:00: MOUTH [place] 00 TWICE A Medical DAY WITH A Branch MEAL NEEDED FOR PAIN (SCALE 4-6) . DO NOT TAKE WITH IBRUPOFEN/ ALEVE MELOXICAM 2022-0 Yes [id number] TAKE ONE Univers 7.5 mg 4-29 TABLET BY ity of tablet 00:00: MOUTH [place] 00 TWICE A Medical DAY WITH A Branch MEAL NEEDED FOR PAIN (SCALE 4-6) . DO NOT TAKE WITH IBRUPOFEN/ ALEVE MELOXICAM 2022-0 Yes [id number] TAKE ONE Univers 7.5 mg 4-29 TABLET BY ity of tablet 00:00: MOUTH [place] 00 TWICE A Medical DAY WITH A Branch MEAL NEEDED FOR PAIN (SCALE 4-6) . DO NOT TAKE WITH IBRUPOFEN/ ALEVE MELOXICAM 2022-0 Yes [id number] TAKE ONE Univers 7.5 mg 4-29 TABLET BY ity of tablet 00:00: MOUTH [place] 00 TWICE A Medical DAY WITH A Branch MEAL NEEDED FOR PAIN (SCALE 4-6) . DO NOT TAKE WITH IBRUPOFEN/ ALEVE MELOXICAM 2022-0 Yes [id number] TAKE ONE Univers 7.5 mg 4-29 TABLET BY ity of tablet 00:00: MOUTH [place] 00 TWICE A Medical DAY WITH A Branch MEAL NEEDED FOR PAIN (SCALE 4-6) . DO NOT TAKE WITH IBRUPOFEN/ ALEVE MELOXICAM 202-0 Yes [id number] TAKE ONE Univers 7.5 mg 4-29 TABLET BY ity of tablet 00:00: MOUTH [place] 00 TWICE A Medical DAY WITH A Branch MEAL NEEDED FOR PAIN (SCALE 4-6) . DO NOT TAKE WITH IBRUPOFEN/ ALEVE MELOXICAM 2021-0 Yes [id number] TAKE ONE Univers 7.5 mg 4-29 TABLET BY ity of tablet 00:00: MOUTH [place] 00 TWICE A Medical DAY WITH A Branch MEAL NEEDED FOR PAIN (SCALE 4-6) . DO NOT TAKE WITH IBRUPOFEN/ ALEVE MELOXICAM 2021-0 Yes [id number] TAKE ONE Univers 7.5 mg 4-29 TABLET BY ity of tablet 00:00: MOUTH [place] 00 TWICE A Medical DAY WITH A Branch MEAL NEEDED FOR PAIN (SCALE 4-6) . DO NOT TAKE WITH IBRUPOFEN/ ALEVE MELOXICAM 2021-0 2021- No [id number] TAKE ONE Univers 7.5 mg 4-29 11-02 TABLET BY ity of tablet 00:00: 00:00 MOUTH [place] 00 :00 TWICE A Medical DAY WITH A Branch MEAL NEEDED FOR PAIN (SCALE 4-6) . DO NOT TAKE WITH IBRUPOFEN/ ALEVE MELOXICAM 202-0 2021- No [id number] TAKE ONE Univers 7.5 mg 4-29 11-02 TABLET BY ity of tablet 00:00: 00:00 MOUTH [place] 00 :00 TWICE A Medical DAY WITH A Branch MEAL NEEDED FOR PAIN (SCALE 4-6) . DO NOT TAKE WITH IBRUPOFEN/ ALEVE SPIRIVA 2021-0 Yes Univers WITH 3-14 ity of HANDIHALER 00:00: [place] 18 mcg 00 Medical inhalation Branch device SPIRIVA 2021-0 Yes Univers WITH 3-14 ity of HANDIHALER 00:00: [place] 18 mcg 00 Medical inhalation Branch device SPIRIVA 2021-0 Yes Univers WITH 3-14 ity of HANDIHALER 00:00: [place] 18 mcg 00 Medical inhalation Branch device SPIRIVA 2021-0 Yes Univers WITH 3-14 ity of HANDIHALER 00:00: [place] 18 mcg 00 Medical inhalation Branch device SPIRIVA 2021-0 Yes Univers WITH 3-14 ity of HANDIHALER 00:00: [place] 18 mcg 00 Medical inhalation Branch device SPIRIVA 2021-0 Yes Univers WITH 3-14 ity of HANDIHALER 00:00: [place] 18 mcg 00 Medical inhalation Branch device SPIRIVA 2021-0 Yes Univers WITH 3-14 ity of HANDIHALER 00:00: [place] 18 mcg 00 Medical inhalation Branch device SPIRIVA 2021-0 Yes Univers WITH 3-14 ity of HANDIHALER 00:00: [place] 18 mcg 00 Medical inhalation Branch device SPIRIVA 2021-0 Yes Univers WITH 3-14 ity of HANDIHALER 00:00: [place] 18 mcg 00 Medical inhalation Branch device SPIRIVA 2021-0 Yes Univers WITH 3-14 ity of HANDIHALER 00:00: [place] 18 mcg 00 Medical inhalation Branch device SPIRIVA 2021-0 Yes Univers WITH 3-14 ity of HANDIHALER 00:00: [place] 18 mcg 00 Medical inhalation Branch device SPIRIVA 2021-0 Yes Univers WITH 3-14 ity of HANDIHALER 00:00: [place] 18 mcg 00 Medical inhalation Branch device SPIRIVA 2021-0 Yes Univers WITH 3-14 ity of HANDIHALER 00:00: [place] 18 mcg 00 Medical inhalation Branch device SPIRIVA 2021-0 Yes Univers WITH 3-14 ity of HANDIHALER 00:00: [place] 18 mcg 00 Medical inhalation Branch device SPIRIVA 2021-0 Yes Univers WITH 3-14 ity of HANDIHALER 00:00: [place] 18 mcg 00 Medical inhalation Branch device SPIRIVA 2021-0 Yes Univers WITH 3-14 ity of HANDIHALER 00:00: [place] 18 mcg 00 Medical inhalation Branch device SPIRIVA 2021-0 Yes Univers WITH 3-14 ity of HANDIHALER 00:00: [place] 18 mcg 00 Medical inhalation Branch device SPIRIVA 2021-0 Yes Univers WITH 3-14 ity of HANDIHALER 00:00: [place] 18 mcg 00 Medical inhalation Branch device SPIRIVA 2021-0 Yes Univers WITH 3-14 ity of HANDIHALER 00:00: [place] 18 mcg 00 Medical inhalation Branch device SPIRIVA 2021-0 Yes Univers WITH 3-14 ity of HANDIHALER 00:00: [place] 18 mcg 00 Medical inhalation Branch device SPIRIVA 2021-0 Yes Univers WITH 3-14 ity of HANDIHALER 00:00: [place] 18 mcg 00 Medical inhalation Branch device SPIRIVA 2021-0 Yes Univers WITH 3-14 ity of HANDIHALER 00:00: [place] 18 mcg 00 Medical inhalation Branch device SPIRIVA 2021-0 Yes Univers WITH 3-14 ity of HANDIHALER 00:00: [place] 18 mcg 00 Medical inhalation Branch device SPIRIVA 2021-0 2- No Univers WITH 3-14 11-09 ity of HANDIHALER 00:00: 00:00 [place] 18 mcg 00 :00 Medical inhalation Branch device Immunizations Ordered Filled Immunization Date Status Comments Sour e Immunization Name Name Td 2022-01-21 Completed University of 00:00:[address] [facility] Td 2022-01-21 Completed University of 00:00:00 [facility] [place] [facility] Branch Td 2022-01-21 Completed University of 00:00:00 [facility] [place] [facility] Td 2022-01-21 Completed University of 00:00:00 [facility] [place] [facility] Td 2022-01-21 Completed University of 00:00:00 [facility] [place] [facility] Branch Td 2022-01-21 Completed University of 00:00:00 [facility] [place] [facility] Td 2022-01-21 Completed University of 00:00:[address] [facility] Td 2022-01-21 Completed University of 00:00:00 [facility] [place] [facility] Branch Td 2022-01-21 Completed University of 00:00:[address] [facility] Td 2022-01-21 Completed University of 00:00:[address] [facility] Td 2022-01-21 Completed University of 00:00:[address] [facility] Vital Signs Vital Name Observation Time Observation Value Comments Source Systolic blood 2022-01-25 15:49:00 157 mm[Hg] Univer sity of pressure [facility] Diastolic blood 2022-01-25 15:49:00 74 mm[Hg] Unive rsity of pressure [facility] Heart rate 2022-01-25 15:49:00 85 /min Universi ty of [facility] Body temperature 2022-01-25 15:49:00 36.28 Katharine Univ ersity [facility] [place] [facility] Respiratory rate 2022-01-25 15:49:00 16 /min Univ ersity [facility] [place] [facility] Oxygen saturation in 2022-01-25 15:49:00 98 /min University of Arterial blood by [place] [employer] marilee Pulse oximetry Branch Body weight 2022-01-23 10:00:00 55.475 kg [facility] [place] [facility] BMI 2022-01-23 10:00:00 20.99 kg/m2 [facility] [place] [facility] Body height 2022-01-21 18:45:00 162.6 cm [facility] [place] [facility] Systolic blood 2022-01-17 15:31:00 170 mm[Hg] Univer sity of pressure [place] [facility] Diastolic blood 2022-01-17 15:31:00 76 mm[Hg] Unive rsity of pressure [place] [facility] Heart rate 2022-01-17 15:31:00 65 /min [facility] [place] [facility] Respiratory rate 2022-01-17 15:31:00 18 /min Univ ers[facility] [place] [facility] Body weight 2022-01-17 15:31:00 49.896 kg [facility] [place] [facility] BMI 2022-01-17 15:31:00 18.88 kg/m2 [facility] [place] [facility] Oxygen saturation in 2022-01-17 15:31:00 97 /min University of Arterial blood by [facility] Pulse oximetry Branch Systolic blood 2022-01-11 14:57:00 159 mm[Hg] Univer sity of pressure [place] [facility] Diastolic blood 2022-01-11 14:57:00 72 mm[Hg] Unive rsity of pressure [place] [facility] Heart rate 2022-01-11 14:56:00 76 /min Universi ty [facility] [place] [facility] Respiratory rate 2022-01-11 14:56:00 18 /min Univ ersity [facility] [place] [facility] Body weight 2022-01-11 14:56:00 49.442 kg [facility] [place] [facility] BMI 2022-01-11 14:56:00 18.71 kg/m2 [facility] [place] [facility] Oxygen saturation in 2022-01-11 14:56:00 97 /min University of Arterial blood by [facility] Pulse oximetry Branch Systolic blood 2022-01-06 01:00:00 188 mm[Hg] Univer sity of pressure [place] [facility] Diastolic blood 2022-01-06 01:00:00 94 mm[Hg] Unive rsity of pressure [place] [facility] Heart rate 2022-01-06 01:00:00 90 /min [facility]i ty [facility] [place] [facility] Respiratory rate 2022-01-06 01:00:00 19 /min Univ ers[facility] [place] [facility] Oxygen saturation in 2022-01-06 01:00:00 97 /min University of Arterial blood by [place] [employer] marilee Pulse oximetry Branch Body temperature 2022-01-05 21:19:00 36.78 Katharine Univ [facility] [place] [facility] Body weight 2022-01-05 21:19:00 50.349 kg [facility] [place] [facility] BMI 2022-01-05 21:19:00 19.05 kg/m2 [facility] [place] [facility] Systolic blood 2021-12-23 15:00:00 153 mm[Hg] Univer sity of pressure [place] [facility] Diastolic blood 2021-12-23 15:00:00 78 mm[Hg] Unive rsity of pressure [place] [facility] Heart rate 2021-12-23 15:00:00 88 /min [facility] [place] [facility] Body height 2021-12-23 15:00:00 162.6 cm [facility] [place] [facility] Body weight 2021-12-23 15:00:00 50.349 kg [facility] [place] [facility] BMI 2021-12-23 15:00:00 19.05 kg/m2 [facility] [place] [facility] Oxygen saturation in 2021-12-23 15:00:00 96 /min University of Arterial blood by [place] [employer] marilee Pulse oximetry Branch Systolic blood 2021-10-17 16:10:00 194 mm[Hg] Univer sity of pressure [place] [facility] Diastolic blood 2021-10-17 16:10:00 86 mm[Hg] Unive rsity of pressure [place] [facility] Heart rate 2021-10-17 16:10:00 84 /min [facility] [place] [facility] Body temperature 2021-10-17 16:10:00 36.28 Katharine Univ [facility] [place] [facility] Respiratory rate 2021-10-17 16:10:00 18 /min Univ [facility] [place] [facility] Body weight 2021-10-17 16:10:00 50.349 kg [facility] Oxygen saturation in 2021-10-17 16:10:00 97 /min [facility] blood by [facility] Pulse oximetry Branch Procedures Procedure Date / Time Performing Clinician Source Performed COVID-19 (ID NOW RAPID 2022-01-25 18:41:00 Patrick Velasquez [facility] TESTING) Medical [facility] CREATINE KINASE 2022-01-25 13:10:00 [facility]OLIC PANEL 2022-01-25 13:10:[address] [facility] ([id number]) [facility] CREATINE KINASE 2022-01-24 11:02:00 Eva [facility] TROPONIN I 2022-01-24 11:02:00 Eva [facility] COMP. METABOLIC PANEL 2022-01-24 11:02:[address] [facility] ([id number]) [facility] N-TERMINAL PRO-BNP 2022-01-24 11:02:00 Eva [facility] CREATINE KINASE 2022-01-23 14:24:00 Eva [facility] TROPONIN I 2022-01-23 14:24:00 Eva [facility] COMP. METABOLIC PANEL 2022-01-23 14:24:[address] [facility] ([id number]) [facility] CBC WITH DIFF 2022-01-23 14:24:00 Eva [facility] N-TERMINAL PRO-BNP 2022-01-23 14:24:00 Eva [facility] BLOOD CULTURE SCREEN 2022-01-22 18:48:00 Eva [facility] URINALYSIS 2022-01-22 17:11:00 Eva [facility] URINE CULTURE 2022-01-22 17:11:00 Eva [facility] TRANSTHORACIC ECHO (TTE) 2022-01-22 15:33:00 Patrick Velasquez [facility] RESPIRATORY PANEL BY PCR 2022-01-22 09:46:00 Jose Antonio Lowe [facility] CREATINE KINASE 2022-01-22 09:43:00 Eva [facility] MAGNESIUM 2022-01-22 09:43:00 Eva [facility] TROPONIN I 2022-01-22 09:43:00 Eva [facility] HEPATIC FUNCTION PANEL 2022-01-22 09:43:00 Eva [facility] ([id number]) (ALB,T.PRO,BILI Medical [facility] T,BU/BC,ALT,AST,ALK PHOS) BASIC METABOLIC PANEL 2022-01-22 09:43:[address] [facility] (NA, K, CL, CO2, GLUCOSE, Medica l Branch BUN, CREATININE, CA) CBC WITHOUT DIFF 2022-01-22 09:43:00 Eva [facility] ACTIVATED PARTIAL 2022-01-22 09:43:00 Mynor [facility] N-TERMINAL PRO-BNP 2022-01-22 09:43:00 Eva [facility] PROCALCITONIN 2022-01-22 09:43:00 Mynor rafia [facility] TROPONIN I 2022-01-22 02:43:00 Eva [facility] ACTIVATED PARTIAL 2022-01-22 02:43:00 Eva [facility] MRSA / MSSA SCREEN BY 2022-01-21 22:20:[facility] TROPONIN I 2022-01-21 22:19:00 Eva [facility] HB ECG ROUTINE & RHYTHM 2022-01-21 16:46:08 Connie Hernandez [facility] XR CHEST 1 VW 2022-01-21 16:35:33 Connie Hernandez [facility] XR ELBOW <3 VW LEFT 2022-01-21 16:35:33 Connie Hernandez [facility] XR HIPS 2 VW LEFT 2022-01-21 16:35:33 Connie Hernandez [facility] CT TRAUMA HEAD WO 2022-01-21 16:25:24 Connie Hernandez [facility] CONTRAST [facility] CT TRAUMA CERVICAL SPINE 2022-01-21 16:25:24 Connie Hernandez [facility] WO CONTRAST [facility] CREATINE KINASE 2022-01-21 16:02:00 Connie Hernandez [facility] MAGNESIUM 2022-01-21 16:02:00 Connie Hernandez [facility] TROPONIN I 2022-01-21 16:02:00 Connie Hernandez [facility] THYROID STIMULATING 2022-01-21 16:02:00 Patrick Velasquez [facility] HORMONE [facility] COMP. METABOLIC PANEL 2022-01-21 16:02:00 Connie Hernandez [facility] ([id number]) [facility] CBC WITH DIFF 2022-01-21 16:02:00 Connie Hernandez [facility] GLYCOSYLATED HEMOGLOBIN 2022-01-21 16:02:00 Patrick Velasquez [facility] (A1C) [facility] PROTHROMBIN TIME / INR 2022-01-21 16:02:00 [facility] 2022-01-21 16:02:00 Connie Hernandez [facility] THRMPLAS TIKA [facility] URINALYSIS 2022-01-21 16:02:00 Connie Hernandez [facility] COVID-19 (ID NOW RAPID 2022-01-21 16:02:00 [facility] LAB ONLY COVID 2022-01-21 16:02:00 Connie Hernandez [facility] INTERPRETATION [facility] CT CERVICAL SPINE WO 2022-01-05 22:40:00 Suzan Cutler [facility] CONTRAST [facility] CT HEAD WO CONTRAST 2022-01-05 22:40:00 Suzan Cutler [facility] CT LUMBAR SPINE WO 2022-01-05 22:40:00 Suzan Cutler [facility] [place] CONTRAST [facility] CT THORACIC SPINE WO 2022-01-05 22:40:00 Suzan Cutler [facility] [place] CONTRAST [facility] XR HUMERUS 2 VW LEFT 2022-01-05 22:23:31 Suzan Cutler Univers ity of [facility] ASSIGNMENT OF BENEFITS 2022-01-05 21:32:23 [facility] [place] [facility]/REFUSAL FOR 2022-01-05 21:31:56 Doctor Unassigned, Unive [facility] DIAGNOSIS AND TREATMENT [place] [facility] Encounters Start End Encounter Admission Attending Care Care Encounter Source Date/Time Date/Time Type Type Clinicians Facility Department ID 2022-06-23 2022-06-23 Outpatient Yomaira LEON [facility] [id number] Univers 11:00:00 11:00:00 PEDRO PABLO [facility] 2022-02-28 2022-02-28 [id number] Univers 00:00:00 00:00:00 Sergio LEIGH [id number] i ty of [place] [place] [phone] La dical NAL [address] BUILDING 2022-02-22 2022-02-22 [facility] 1.2.840.114 [id number] Univers 00:00:00 00:00:[address] [facility] 350.1.13.10 ity [facility] 4.2.7.2.686 Juan Carlos as ALIYAH?BLEA [phone] La dical KNEY [address] MEDICAL OFFICE BUILDING 2022-02-14 2022-02-14 [facility] TOÑITO Mendoza 1.2.840.114 [id number] Univers 12:37:00 23:59:00 Encounter Presley Mcnally 350.1.13.10 ity of [facility] 4.2.7.2.686 Juan Carlos as [phone] [place] [address] 2022-02-14 2022-02-14 Outpatient Yomaira [facility] ACO [id number] Univers 00:00:00 23:59:00 PRESLEY ity of [facility] 2022-02-14 2022-02-14 Telephone Marilyn [facility] 1.2.840.114 [id number] Univers 00:00:00 00:00:00 Ogechukwu [place] 350.1.13.10 ity of [place] [phone] La dical NAL 044 [facility] 2022-01-26 2022-01-26 Transition DESTIN Lin 1.2.840.114 [id number] Univers 00:00:00 00:00:00 of Care Veena L [place] 350.1.13.10 i ty of [place] [phone] [facility] [address] 2022-01-26 2022-01-26 Refill Marilyn [facility] 1.2.840.114 [id number] Univers 00:00:00 00:00:00 Ogsamanthawu [place] 350.1.13.10 ity of [place].2.[place] [phone] La dicin NAL 044 [facility] 2022-01-21 2022-01-25 Inpatient X EVA PADELONTE JUN [id number] Univers 10:34:00 18:29:00 PATRICK itamina of [facility] 2022-01-21 2022-01-25 [facility] Connie Hernandez [facility] 1.2.84 0.114 [id number] Univers 10:34:00 18:29:00 Encounter Patrick Velasquez 350.1.13.10 it[place] [phone] [facility] [address] 2022-01-23 2022-01-23 Telephone Marilyn [facility] 1.2.840.114 [id number] Univers 00:00:00 00:00:00 Ogechukwu [place] 350.1.13.10 ity of [place] 4.2.7.2.[place] [phone] La dic[address] 2022-01-17 2022-01-17 Outpatient R CHRISTA SANDERS [facility] [id number] Univers 10:30:00 14:11:18 CHRISTA SANDERS itamina [facility] 2022-01-17 2022-01-17 Office Marilyn, [facility] 1.2.840.114 [id number] Univers 10:30:00 14:11:18 [facility] 350.1.13.10 ity of [place] 4.2.7.2.[place] [phone] [address] 2022-01-11 2022-01-11 Outpatient R JOSE LUIS SANDERSJATeresa [facility] [id number] Univers 09:30:00 11:05:09 CHRISTA SANDERS [facility] 2022-01-11 2022-01-11 Office [facility] 1.2.840.114 [id number] Univers 09:30:00 11:05:09 Visit [facility]oteresa REESE 350.1.13.10 ity of [place] 4.[place].2.[place] [phone] [address] 2022-01-11 2022-01-11 Patient Damien [facility] 1.2.840.114 [id number] Univers 00:00:00 00:00:00 Outreach Joanna LEIGH 350.1.13.10 ity [facility] 4.2.7.2.[place] [phone] [address] 2022-01-05 2022-01-05 Emergency X CATARINO [facility] ERT [id number] Univers 16:17:00 22:03:00 SUZAN itamina [facility] 2022-01-05 2022-01-05 Emergency [facility] 1.2.787.314 [id number] Univers 16:17:00 22:03:00 Suzan S REESE 350.1.13.10 i ty of [facility] 4.2.7.2.[place] [phone] [address] 2021-12-23 2021-12-23 Outpatient R MADHAV STEVEN [facility] [id number] Univers 10:00:00 10:37:11 MADHAV STEVEN ity of [facility] 2021-12-23 2021-12-23 Office Daniel [facility] 1.2.840.114 [id number] Univers 10:00:00 10:37:[address] [facility] 350.1.13.10 ity of [facility] 4.2.7.2.686 Juan Carlos as ALIYAH?BLEA [phone] [address] OFFICE [facility] 2021-12-15 2021-12-15 Reflaura HayeseUNIVERSITY OF [facility] 1.2.840.114 [id number] Univers 00:00:00 00:00:[address] [facility] 350.1.13.10 ity of [facility] 4.2.7.2.686 [place] Carlos as ALIYAH?BLEA [phone] [address] OFFICE [facility] 2021-12-12 2021-12-12 [facility] 1.2.840.114 [id number] Univers 00:00:00 00:00:00 Ogechukwu [place] 350.1.13.10 ity of [facility] 4.2.7.2.[place] [phone] La dicin NAL [address] [place] [address] 2021-12-10 2021-12-10 [facility] 1.2.840.114 [id number] Univers 00:00:00 00:00:00 Ogechukwu [place] 350.1.13.10 ity of [place] 4.2.7.2.[place] [phone] La dical NAL [address] [place] [address] 2021-12-07 2021-12-07 Reflaura SandersUNIVERSITY [facility] 1.2.840.114 [id number] Univers 00:00:00 00:00:00 Ogechukwu [place] 350.1.13.10 ity of [place] 4.2.7.2.[place] [phone] La dical NAL 044 [facility] 2021-11-17 2021-11-17 Patient Daniel [facility] 1.2.840.114 [id number] Univers 00:00:00 00:00:00 Secure Msg Madhav [facility] 350.1.13.10 ity of [facility] 4.2.7.2.686 [place] as ALIYAH?BLEA [phone] [address] OFFICE [facility] 2021-11-17 2021-11-17 Refill DanielUN[facility] 1.2.840.114 [id number] Univers 00:00:00 00:00:[address] [facility] 350.1.13.10 ity of [place] 4.2.7.2.686 Juan Carlos as ALIYAH?BLEA [phone] [address] 2021-11-03 2021-11-03 Orders Doctor ELIE 1.2.840.114 [id number] Univers 00:00:00 00:00:00 Only Unassigned, ROBY 350.1.13.10 ity of [place] [facility] 4.2.7.2.686 Juan Carlos as [phone] [facility] [address] 2021-10-26 2021-10-26 Telephone Marilyn [facility] 1.2.840.114 [id number] Univers 00:00:00 00:00:00 Christa [facility] 350.1.13.10 ity of [place] 4.2.7.2.686 [place] [facility] [phone] La dicdarius NAL [address] [place] [address] 2021-10-25 2021-10-25 Outpatient R DANIEL MADHAV [facility] [id number] Univers 11:54:29 23:59:00 DANIELMADHAV Herrera ity of [facility] 2021-10-25 2021-10-25 Hospital [facility]UN[facility] 1.2.382.558 [id number] Univers 11:40:00 23:59:00 Encounter Madhav Rayo [facility] 350.1.13.10 ity of [place] 4.2.7.2.686 [place] [phone] [facility] [address] 2021-10-24 2021-10-24 [facility] 1.2.840.114 [id number] Univers 00:00:00 00:00:00 Joes Luisbrittanymarisa LEIGH 350.1.13.10 ity of [facility] 4.2.7.2.686 [place] [phone] La reed Reyes [facility] 2021-10-21 2021-10-21 Outpatient R MADHAV STEVEN [facility] [id number] Univers 10:40:00 12:42:41 MADHAV STEVEN ity of [facility] 2021-10-21 2021-10-21 Office [facility]UN[facility] 1.2.840.114 [id number] Univers 10:40:00 12:42:[address] [facility] 350.1.13.10 ity of [place] 4.2.7.2.686 Juan Carlos as ALIYAH?BLEA [phone] [facility] ISIDRO [address] [place] [address] OFFICE [facility] 2021-10-20 2021-10-20 Telephone [facility] 1.2.840.114 [id number] Univers 00:00:00 00:00:00 Josemarisa LE[place] 350.1.13.10 ity of [place] 4.2.7.2.686 [place] [phone] La reed MOONEY [address] [place] [address] 2021-10-19 2021-10-19 Telephone [facility] 1.2.840.114 [id number] Univers 00:00:00 00:00:00 Christa LEIGH 350.1.13.10 ity of [facility] 4.2.7.2.686 [place] [phone] La reed MOONEY [address] [place] [address] 2021-10-19 2021-10-19 Orders Doctor ELIE 1.2.840.114 [id number] Univers 00:00:00 00:00:00 Only Unassigned, ROBY 350.1.13.10 ity of [place] [facility] 4.2.7.2.686 Juan Carlos as [phone] [address] 2021-10-17 2021-10-17 Outpatient R CHRISTA SANDERS [facility] [id number] Univers 10:30:00 11:57:35 CHRISTA SANDERS [facility] 2021-10-17 2021-10-17 Outpatient R CHRISTA SANDERS [facility] [id number] Univers 10:30:00 11:57:35 CHRISTA SANDERS [facility] 2021-10-17 2021-10-17 Office Marilyn [facility] 1..840.114 [id number] Univers 10:30:00 11:57:35 Visit Anuploteresa REESE 350.1.13.10 ity [address] [facility] 4.2.7.2.686 [place] [phone] [address] 2021-10-17 2021-10-17 Outpatient R CHRISTA SANDERS [facility] [id number] Univers 10:30:00 10:30:00 CHRISTA SANDERS [facility] 2021-10-17 2021-10-17 Outpatient R CHRISTA SANDERS [facility] [id number] Univers 10:30:00 10:30:00 CHRISTA SANDERS [facility] 2021-09-30 2021-09-30 Outpatient R DANIELMADHAV [facility] [id number] Univers 10:00:00 10:00:00 [facility] 2021-09-17 2021-09-17 Refill [facility] .2.840.114 [id number] Univers 00:00:00 00:00:00 Christa LEIGH 350.1.13.10 ity of [place] 4.2.7.2.686 [place] [phone] [address] 2021-09-15 2021-09-15 Refill Marilyn [facility] .2.840.114 [id number] Univers 00:00:00 00:00:00 Christa LEIGH 350.1.13.10 ity of [place] 4.2.7.2.686 [place] [phone] La reed MOONEY [address] [facility] 2021-09-13 2021-09-13 Refill [facility] 1.2.840.114 [id number] Univers 00:00:00 00:00:00 [facility]low[facility] hospitalukwu [place] 350.1.13.10 ity of [facility] 4.2.7.2.686 [place] [phone] La dical NAL [address] [facility] 2021-09-13 2021-09-13 Telephone [facility] 1.2.840.114 [id number] Univers 00:00:00 00:00:00 Oge[facility]ukwu [facility] 350.1.13.10 ity of [place] 4.2.7.2.686 [place] [phone] La dical NAL [address] [facility] 2021 2021 [facility] 1.2.840.114 [id number] Univers 00:00:00 00:00:00 [facility] 350.1.13.10 ity of [place] 4.2.7.2.686 Juan Carlos as ALIYAH?BLEA [phone] La reed FELIX [address] [place] [address] OFFICE BUILDING 2021-08-02 2021-08-02 Refill [facility] 1.2.840.114 [id number] Univers 00:00:00 00:00:00 [facility] hospit[facility]rystin[facility] 350.1.13.10 ity of [place] 4.2.7.2.686 [place] [phone] La dical NAL [address] [facility] 2021-07-22 2021-07-22 Refill [facility] 1.2.840.114 [id number] Univers 00:00:00 00:00:00 [place]gb[place] hospitalkrystinu [facility] 350.1.13.10 ity [address] [facility] 4.2.7.2.686 [place] [phone] La dical NAL [address] [facility] 2021-07-06 2021-07-06 Outpatient R CHRISTA SANDERS [facility] [id number] Univers 00:00:00 00:00:00 MARILYN CHRISTA ity [facility] 2021-06-14 2021-06-14 Telephone Marilyn [facility] 1.2.840.114 [id number] Univers 00:00:00 00:00:00 Christa LEIGH 350.1.13.10 ity of [place] 4.2.7.2.686 [place] [phone] La dical NAL 044 [facility] 2021-06-13 2021-06-[address] Interpreter 2, Adc Lab [facility] 1.2.840.114 [id number] Univers 14:30:00 14:45:00 Visit Marilyn, Christa REESE 350.1.13.1 0 ity of [place] 4.2.7.2.686 [place] [phone] La dical NAL 353 [facility] 2021-06-13 2021-06-[address] Interpreter 2, Adc Lab [facility] 1.2.840.114 [id number] Univers 14:30:00 14:45:00 Visit Marilyn Christa REESE 350.1.13.1 0 ity of [place] 4.2.7.2.686 [place] [phone] La dicdarius [address] 2021-06-13 2021-06-13 Outpatient R CHRISTA SANDERS [facility] [id number] Univers 13:00:00 14:24:20 CHRISTA SANDERS ity [facility] 2021-06-13 2021-06-13 Outpatient R CHRISTA SANDERS [facility] [id number] Univers 13:00:00 14:24:20 CHRISTA SANDERSy [facility] 2021-06-13 2021-06-13 Outpatient R CHRISTA SANDERS [facility] [id number] Univers 13:00:00 14:24:20 CHRISTA SANDERSy [facility] 2021-06-13 2021-06-13 Office Marilyn [place] 1.2.840.114 [id number] Univers 13:00:00 14:24:20 Visit Christa LEIGH 350.1.13.10 ity [facility] 4.2.7.2.686 [place] [phone] La dical NAL 044 [facility] 2020-08-18 2020-08-[address] Interpreter Isaías, Adc Lab Main [facility] 1.2.8 40.114 [id number] Univers 10:22:05 10:37:05 Visit Zahra Fall 350.1.13.10 ity of [place] 4[place]2.7.2.686 [place] [phone] La dical nal 353 [facility] 2020-08-18 2020-08-18 Outpatient R JAY [facility] [id number] Univers 10:30:00 10:30:00 ZAHRA soto [facility] 2020-08-18 2020-08-18 Orders Doctor ELIE 1.2.840.114 [id number] Univers 00:00:00 00:00:00 Only Unassigned, ROBY 350.1.13.10 ity of [place] [facility] 4.2.7.2.686 Juan Carlos as [phone] [address] Results Test Description Test Time Test Comments Results Result Comments Source COMP. METABOLIC PANEL (22589) 2022-01-25 13:41:23 Test Item Value Reference Range Interpretation Comme nts NA (test code = 5384502779) 135 mmol/L 135-145 K (test code = 3286644895) 3.9 mmol/L 3.5-5.0 CL (test code = 8899120186) 100 mmol/L 98-108 CO2 TOTAL (test code = 0698170379) 32 mmol/L 23-31 H AGAP (test code = 5248850167) 2-16 BUN (test code = 9519033065) 15 mg/dL 7-23 GLUCOSE (test code = 0671921823) 125 mg/dL 70-110 H CREATININE (test code = 0.77 mg/dL 0.50-1.04 1570199855) TOTAL BILI (test code = 1.0 mg/dL 0.1-1.4 4754013669) CALCIUM (test code = 8402339069) 9.1 mg/dL 8.6-10.6 T PROTEIN (test code = 1420724096) 6.2 g/dL 6.3-8.2 L ALBUMIN (test code = 1209584197) 3.6 g/dL 3.5-5.0 ALK PHOS (test code = 8518360550) 58 U/L 34-122 ALTv (test code = 1742-6) 48 U/L 5-35 H AST(SGOT) (test code = 3375520564) 52 U/L 13-40 H eGFR (test code = 0058718869) mL/min/1.73m2 DAR (test code = DAR) Association of Glomerular Filtration Rate (GFR) and Staging of Kidney Disease* + +-------- + ------+| GFR (mL/min/1.73 m2) ?| With Kidney Damage ?| ?Without Kidney Damage+ +-- + +| ?>90 ?| ?Stage one ?| ? Normal ?+ +------- + -------+| ?60-89 ?| ?Stage two ?| ? Decreased GFR ? + +-------- + ------+| ?30-59 ?| ?Stage three ?| ? Stage three ? + +-------- + ------+| ?15-29 ?| ?Stage four ? | ? Stage four ?+ +------- + -------+| ?<15 (or dialysis) ? ?| ?Stage five ? | ? Stage five ?+ +------- + -------+ *Each stage assumes the associated GFR level has been in effect for at least three months. ?Stages 1 to 5, with or without kidney disease, indicate chronic kidney disease. Notes: Determination of stages one and two (with eGFR >59mL/min/1.73 m2) requires estimation of kidney damage for at least three months as defined by structural or functional abnormalities of the kidney, manifested by either:Pathological abnormalities or Markers of kidney damage (including abnormalities in the composition of the blood or urine or abnormalities in imaging tests). Lab Interpretation (test code = Abnormal 58747-3) [facility] HospitalCREAT[facility] [id number] 13:40:27 Test Item Value Reference Range Interpretation Comments CK (test code = 6974668193) 140 U/L 33-194 Lab Interpretation (test code = Normal 54232-0) [facility] HospitalTransthoracic echo (TTE)2022-01-22 17:18:55 Test Item Value Reference Range Interpretation Comments Height (test code = in 9382918305) Weight (test code = lbs 1696816240) Systolic BP (test code mmHg = 2514903697) Diastolic BP (test code mmHg = 5095570543) Heart Rate (test code = bpm 8277593795) BSA (test code = 1.56 m2 2161931215) LVOT diameter (test 1.68 cm code = 5561032728) LVOT area (test code = 2.21 cm2 7703974229) Ao root diam (test code 3.20 cm = 0334678716) Aortic root (test code 3.2 cm = 2099597103) Ao root annulus (test 3.2 cm code = 0166630001) LA size (test code = 4.0 cm 4389387844) ACS (test code = 1.34 cm 7447885704) LVIDD (test code = 5.20 cm 7816533660) Left Ventricular End 129.6 mL Diastolic Volume by Teichholz Method (test code = 0349052) IVS (test code = 1.31 cm 7697995250) Interventricular Septum 1.31 cm Diastolic Thickness by 2D (test code = 9314009) LVPWD (test code = 1.30 cm 0643045417) PW (test code = 1.30 cm 0.6-1.0 9203761229) EF(Teich) (test code = 65.20 % 7174884879) LVIDS (test code = 3.30 cm 6500311306) Left Ventricular End 45.1 mL Systolic Volume by Teichholz Method (test code = 3688022) FS (test code = 36 % 9577202682) EF - 2D (test code = 65.20 % 07409100) PV PEAK VELOCITY (test 87.8 cm/s code = 2736689516) PV peak gradient (test mmHg code = 1784648158) MV E-F slope (test code 42.50 cm/s = 1428321942) MV Peak E Jessica (test 74.2 cm/s code = 3157941815) MV Peak A Jessica (test 103.3 cm/s code = 6845997883) E/A ratio (test code = ratio 6074417260) MV valve area p 1/2 3.70 cm2 method (test code = 6416065227) MV dec slope (test code 362.10 cm/s2 = 0887762991) MV P1/2t max jessica (test 72.80 cm/s code = 7293868605) MR max PG (test code = 68.80 mm[Hg] 4904798387) MR max jessica (test code = 414.60 cm/s 4920898871) Mr max jessica (test code = 414.6 m/s 0749322198) LVOT peak jessica (test 134.0 cm/s code = 1805408675) AV LVOT peak gradient mmHg (test code = 1159196796) AV area peak jessica (test 0.8 cm2 code = 6491785125) LVOT stroke volume 66.80 cm3 (test code = 4273262019) LVOT mn grad (test code mmHg = 8846015569) LVOT peak VTI (test 30.2 cm code = 7597290389) LV V1 mean (test code = 82.40 cm/s 5077115773) Aortic valve mean 228.7 cm/s velocity (test code = 1550304863) Ao peak jessica (test code 360.9 cm/s = 1641744815) Ao VTI (test code = 74.9 cm 0890917964) AV area by cont VTI 0.9 cm2 (test code = 1943052064) Ao max PG (test code = 52.10 mm[Hg] 1275150819) AV peak gradient (test mmHg code = 0018648442) AV valve area (test 0.89 cm2 code = 7973092476) AV mean gradient (test mmHg code = 2711672235) TR Peak Jessica (test code 252.3 cm/s = 7450037562) Triscuspid Valve mmHg Regurgitation Peak Gradient (test code = 6970924469) AV regurgitation 510.2 ms pressure 1/2 time (test code = 5322297949) AI dec slope (test code 235.10 cm/s2 = 6259831596) AI max jessica (test code = 409.60 cm/s 9851141922) AI max PG (test code = 67.10 mm[Hg] 6861119958) Radiology Study observation (narrative) (test code = 98179-9) DAR (test code = DAR) ?Left?Ventricle: Left ventricle size is normal. Mild basal septal thickening. Normal wall motion. Normal systolic function with a visually estimated EF of 60 - 65%. There is impaired relaxation. ?Tricuspid?Valve: Insufficient regurgant jet to estimate RVSP. ?RA pressure is 0-5 mmHg. ?Aortic?Valve: Peak velocity 3.2 m/sec, mean gradient 24.4 mmHg, ADOLPH 1.3 cm2, LVOT 1.9 cm. Consistent with moderate aortic stenosis. Left VentricleLeft ventricle size is normal. Mild basal septal thickening. Normal wall motion. Normal systolic function with a visually estimated EF of 60 - 65%. There is impaired relaxation.Right VentricleRight ventricle size is normal. Normal systolic function.Left AtriumLeft atrium size is normal.Right AtriumRight atrium size is normal.Mitral ValveMitral valve structure is normal. Trace transvalvular regurgitation.Tricuspi d ValveTricuspid valve structure is normal. Trace transvalvular regurgitation. Insufficient regurgant jet to estimate RVSP. RA pressure is 0-5 mmHg.Aortic ValveModerately thickened cusps. Moderately calcified cusps. Mild transvalvular regurgitation. Peak velocity 3.2 m/sec, mean gradient 24.4 mmHg, ADOLPH 1.3 cm2, LVOT 1.9 cm. Consistent with moderate aortic stenosis.Pulmonic ValvePulmonic valve is normal in structure and function.Ascending AortaNormal sized aorta.PericardiumThe pericardium is normal.Study DetailsStudy quality was adequate. A complete echocardiogram was performed using 2D, color flow Doppler and spectral Doppler. [facility]"
--- NOTE | 2022-03-07 10:32 | RAD REPORT ---
EXAM DESCRIPTION: CT - CTHCSPWOC - 03/07/2022 10:20 am CLINICAL HISTORY: fall COMPARISON: No comparisons TECHNIQUE: Axial 5 mm thick images of the head were obtained. Axial 2 mm thick images of the cervic al spine were obtained with sagittal and coronal reconstruction images generated and reviewed. All CT scans are performed using dose optimization technique as appropriate and may include automated exposure control or mA/KV adjustment according to patient size. FINDINGS: No intracranial hemorrhage, mass, edema or acute intracranial finding. No suspicion for ac venetie ira infarction. No cortical edema or sulcal effacement. Patient has moderate severity atrophy with ve ntricles in proportion to the amount of volume loss. Mild to moderate chronic ischemic change seen in the cerebral white matter. Mastoid air cells and paranasal sinuses are clear. No globe or orbit abno rmality seen. Dense arterial tree calcifications are present. Cervical body height is normal. No fracture or acute cervical spine finding. There is very slight ret rolisthesis of C4 on 5 no significant C4-5 disc space narrowing. No facet joint alignment abnormality . No pathologic bone process seen. C6-7 disc space narrowing is present. Facet joint degenerative mattie nges are present. There is mild right bony foraminal stenosis at C3-4. Significant bilateral foramina l stenosis is present at C4-5 where there is also central spinal stenosis from endplate spurring. Can al is reduced to 8 mm. Yvuv-vc-ikvdjlex right-sided foraminal stenosis C5-6. Central canal detail is inherently limited. No paraspinal mass or hematoma. IMPRESSION: Atrophy and chronic ischemic changes are present as detailed. No hemorrhage or acute int racranial finding. Prominent cervical spine degenerative change as detailed including spinal stenosis at C4-5. No acut e finding identifiable.
[2022-03-07 11:08] LABS: Absolute Lymphocytes (CBC) 0.8 K/uL (0.7-4.9); Hematocrit 23.1 % (36.0-45.0); Lymphocytes % 10.8 % (15.3-44.8); MCV 91.2 fL (80-100); MPV 8.4 fL (7.6-11.3); RBC Red Blood Cell Count 2.54 M/uL (3.86-4.86)
[2022-03-07] MEDS ORDERED: MORPHINE 2 MG/ML SYR ONE ×2 (11:17→12:26)
--- NOTE | 2022-03-07 11:19 | RAD REPORT ---
EXAM DESCRIPTION: RAD - Hip Bilateral With Pelvis - 03/07/2022 10:36 am CLINICAL HISTORY: Fall, left hip pain COMPARISON: None. TECHNIQUE: AP view of the pelvis and hip joints was obtained with frogleg views of each hip joint. FINDINGS: Prominent lower lumbar degenerative changes are present only partially imaged. SI joint de generative changes are present. No clear change from the short interval March 02 examination. Bilateral hip joint degenerative changes are present not clearly different from prior imaging. An acu te fracture is not identified. No AVN or pathologic bone process. IMPRESSION: Degenerative changes to the lower lumbar spine, pelvis and hip joints similar to Decee r 8 imaging. No acute findings seen.
--- NOTE | 2022-03-07 11:23 | RAD REPORT ---
EXAM DESCRIPTION: RAD - Chest Single View - 03/07/2022 10:36 am CLINICAL HISTORY: fall, chest pain COMPARISON: CT cervical spine imaging March 07 TECHNIQUE: AP portable chest image was obtained 03/07/2022 10:36 am . FINDINGS: No pulmonary contusion or acute lung parenchymal process identifiable. A few scattered gra nulomas are seen. Hazy increased opacification of the right upper lung field is potentially pleural t hickening or plaquing. Mass of the lung parenchyma is unlikely but not entirely excluded. Overlapping cardiac leads contribute to an overall increase in density. Heart and vasculature are normal. No pleural effusion is present. No pneumothorax identified. No acute rib deformity seen. Rib detail is limited on supine portable exam. No acute aortic findings suspected. IMPRESSION: No pulmonary contusion, pneumothorax or acute lung parenchymal process identified. Hazy ill-defined increased density over the right upper lung field is favored to be soft tissue or ot her extra thoracic artifact. A repeat chest exam when the patient is able to tolerate upright imaging without cardiac leads in place may be helpful.
--- NOTE | 2022-03-07 12:26 | RAD REPORT ---
EXAM DESCRIPTION: CT - Pelvis Wo Cont - 03/07/2022 12:10 pm CLINICAL HISTORY: Pelvic trauma, fall, pain out of proportion to imaging findings COMPARISON: Hip Bilateral With Pelvis dated 03/07/2022 TECHNIQUE: Axial noncontrast 2 millimeter thick images of the pelvis were obtained from the mid L4 l evel to the proximal thigh level with sagittal and coronal reformatted images generated and reviewed. All CT scans are performed using dose optimization technique as appropriate and may include automate d exposure control or mA/KV adjustment according to patient size. FINDINGS: Advanced facet joint degenerative change present at L4-5 and L5-S1. No L5 compression frac ture deformity. L4 is only partially imaged. No sacrum or coccyx vertebral body fracture. Sacral ala are intact. Degenerative changes are present at each SI joint without acute finding seen. Bony pelvis is intact. No fracture of either proximal femur. Bilateral hip joint degenerative changes are present. No AVN or focal femoral head abnormality. There is a large area of hemorrhagic change in the subcutaneous fatty tissues along the anterior, lat eral and posterior aspects of the lower pelvis, hip joint and proximal thigh. Deeper skeletal muscula ture is normal. No joint effusion or periarticular acute finding. In the pelvic peritoneal and retroperitoneal spaces there are no acute findings. Pelvic floor laxity is present. IMPRESSION: Extensive hemorrhagic change in the subcutaneous fatty tissues along the anterior, later al and posterior aspects of the lower pelvis, hip joint and proximal thigh. No proximal femur or pelvic fracture. No joint effusion or periarticular acute finding.
--- NOTE | 2022-03-07 12:38 | RAD REPORT ---
EXAM DESCRIPTION: CT - Spine Lumbar Wo Con - 03/07/2022 12:23 pm CLINICAL HISTORY: FALL, BACK PAIN COMPARISON: None. TECHNIQUE: Thin section axial imaging of the lumbar spine was performed from mid T12 to the inferior sacral ala. Sagittal and coronal reconstruction images were generated and reviewed. All CT scans are performed using dose optimization technique as appropriate and may include automated exposure control or mA/KV adjustment according to patient size. FINDINGS: No lumbar vertebral body acute compression. Left convex degenerative scoliotic curvature i s present. Patient has very slight retrolisthesis of L2 on L3 and L3 on L4. Endplate degenerative spu rring changes are present. There is degenerative disc disease at all levels except L5-S1. Significant disc space narrowing present right lateral aspect L4-5 due to the scoliosis and to a lesser degree a t L3-4. Very slight right lateral subluxations of L2 on L3 and L3 on L4 noted. No pathologic bone process seen. No paraspinal soft tissue mass. Prominent facet joint degenerative c hanges are present. Central canal detail is inherently limited. No gross evidence for a central canal abnormality. Adrien ioma changes are present in the right lateral L3 body. Sacral ala are intact. SI joint degenerative changes are present. IMPRESSION: Scoliotic and advanced degenerative changes are present in the lumbar spine as detailed. No compression fracture or acute finding in the lumbar spine. Multilevel degenerative disc disease is present. Central canal detail is inherently limited but no gr oss evidence for disc herniation or central canal compromise.
--- NOTE | 2022-03-07 12:57 | EDPHYS ---
Physician Documentation [facility] Name: Vickie Santiago Age: 86 yrs Sex: Female : 1935 Arrival Date: 03/07/2022 Time: 10:07 Bed 2 Private MD: ED Physician David Vickers HPI: 03/07 10:27 This 86 yrs old Female presents to ER via EMS with complaints of Fall Injury. ms3 10:27 Details of fall: The patient fell from an upright position, while standing. Onset: The ms3 symptoms/episode began/occurred just prior to arrival. Associated injuries: The patient sustained Left hip, contusion, painful injury. Severity of symptoms: At their worst the symptoms were severe, in the emergency department the symptoms have improved. 10:27 Patient presents via [facility]. EMS notes patient's right foot is externally ms3 rotated and shortened. 50 mcg of fentanyl was administered.. Historical: - Allergies: 10:16 No Known Allergies; iw - Home Meds: 10:16 alprazolam 0.25 mg Oral tab 1 tab BID for Anxiety [Active]; aspirin 81 mg Oral chew 1 iw tab once daily [Active]; atorvastatin 40 mg Oral tab 1 tab once daily [Active]; benazepril 40 mg Oral tab 1 tab once daily [Active]; diltiazem HCl 240 mg Oral Tb24 1 tab once daily [Active]; hydrocodone-acetaminophen 5-325 mg Oral tab 1 tab every 6 hours for Pain [Active]; lutein 20 mg Oral cap daily [Active]; spironolactone 25 mg Oral tab 1 tab once daily [Active]; rivastigmine tartrate 4.5 mg Oral cap 1 cap 2 times per day [Active]; - PMHx: 10:16 Acute Kidney Failure; Anxiety; CHF; COPD; Dementia; Heart Murmur; HTN; Hyperlipidemia; iw macular degeneration; NSTEMI; vit d deficiency; ROS: 10:27 Constitutional: Negative for fever, and chills. Eyes: Negative for injury, pain, ms3 redness, and discharge, Neck: Negative for injury, pain, and swelling, Cardiovascular: Negative for chest pain, and palpitations. Respiratory: Negative for shortness of breath, cough, wheezing, and pleuritic chest pain, Abdomen/GI: Negative for abdominal pain, nausea, vomiting, diarrhea, and constipation. 10:27 MS/extremity: Positive for pain, tenderness, of the Left and right hip. 10:27 All other systems are negative. Exam: 10:27 Constitutional: This is a well developed, well nourished patient who is awake, alert, ms3 and in no acute distress. 10:27 Chest/axilla: Normal chest wall appearance and motion. Nontender with no deformity. Cardiovascular: Regular rate and rhythm with a normal S1 and S2. No gallops, murmurs, or rubs. Normal PMI, no JVD. No pulse deficits. Respiratory: Lungs have equal breath sounds bilaterally, clear to auscultation and percussion. No rales, rhonchi or wheezes noted. No increased work of breathing, no retractions or nasal flaring. Abdomen/GI: Soft, non-tender, with normal bowel sounds. No distension or tympany. No guarding or rebound. No evidence of tenderness throughout. Back: No spinal tenderness. No costovertebral tenderness. Full range of motion. 10:27 Head/face: Noted is contusion, that is superficial, of the left restorationism. 10:27 Musculoskeletal/extremity: Extremities: noted in the Left hip: ecchymosis, pain, tenderness, noted in the Right hip: pain, tenderness. 10:27 Skin: injury, contusion(s), of the Left forehead, left clavicle, left hip, left thigh. Vital Signs: 10:10 BP 123 / 67; Pulse 89; Resp 16; Temp 97.6; Pulse Ox 98% on R/A; iw 11:12 BP 120 / 51; Pulse 71; Resp 16; Pulse Ox 100% on R/A; iw [place] Coma Score: 10:18 Eye Response: spontaneous(4). Verbal Response: oriented(5). Motor Response: obeys iw commands(6). Total: 15. Trauma Score (Adult): 10:10 Eye Response: spontaneous(1); Verbal Response: oriented(1); Motor Response: obeys iw commands(2); Systolic BP: > 89 mm Hg(4); Respiratory Rate: 10 to 29 per min(4); Angelica Score: 15; Trauma Score: 12 MDM: 10:09 Patient medically screened. ms3 10:27 Differential diagnosis: contusion, fracture, sprain, strain. ms3 12:57 Data reviewed: vital signs, nurses notes, radiologic studies, CT scan. Counseling: I ms3 had a detailed discussion with the patient and/or guardian regarding: the historical points, exam findings, and any diagnostic results supporting the discharge/admit diagnosis, radiology results, the need for outpatient follow up, to return to the emergency department if symptoms worsen or persist or if there are any questions or concerns that arise at home. Response to treatment: the patient's symptoms have mildly improved after treatment, and as a result, I will discharge patient. ED course: Discussed x-rays and CT scans with patient and her daughter. Patient to follow-up with Dr. Lowery as scheduled. All questions were answered. Return precautions discussed include worsening symptoms, or any other concerns. 03/07 10:12 Order name: Basic Metabolic Panel; Complete Time: 11:24 ms3 03/07 10:12 Order name: CBC with Diff; Complete Time: 11:24 ms3 03/07 10:12 Order name: CT Head C Spine; Complete Time: 11:24 ms3 03/07 10:12 Order name: XRAY Chest (1 view); Complete Time: 11:24 ms3 03/07 10:12 Order name: Labs collected and sent; Complete Time: 11:21 ms3 03/07 10:34 Order name: Hip Bilateral With Pelvis; Complete Time: 11:24 EDMS 03/07 11:48 Order name: CT Pelvis wo Cont; Complete Time: 12:42 ms3 03/07 12:22 Order name: Spine Lumbar Wo Con; Complete Time: 12:42 EDMS Administered Medications: 11:21 Drug: morphine 2 mg Route: IVP; Infused Over: 4 mins; Site: right antecubital; iw 12:33 Drug: morphine 2 mg Route: IVP; Infused Over: 4 mins; Site: right antecubital; iw Disposition Summary: 03/07/22 12:57 Discharge Ordered Location: Home ms3 Condition: Stable ms3 Diagnosis - Pain in left hip ms3 - Pain in right hip ms3 - Left hip hematoma ms3 - Left facial contusion ms3 Followup: ms3 - With: Chapincito Lowery MD - When: 2 - 3 days - Reason: Recheck today's complaints Discharge Instructions: - Discharge Summary Sheet ms3 - Musculoskeletal Pain ms3 - Fall Prevention in the Home, Adult, [id number] ms3 Forms: - Medication Reconciliation Form ms3 - Thank You Letter ms3 - Antibiotic Education ms3 - Prescription Opioid Use ms3 Prescriptions: - Tramadol 50 mg Oral Tablet - take 1 tablet by ORAL route every 8 hours as needed; 12 tablet; Refills: 0, ms3 Product Selection Permitted Signatures: Dispatcher [employer] EDLinnea Yang RN RN David Church DO DO ms3 Corrections: (The following items were deleted from the chart) 10:33 10:18 Hip Bilateral With Pelvis ordered. EDMS EDMS 10:34 10:12 Pelvis+[email or web address] ordered. EDMS EDMS
--- NOTE | 2022-03-07 12:57 | ER ---
Nurse's Notes [facility] Name: Vickie Santiago Age: 86 yrs Sex: Female : 1935 Arrival Date: 03/07/2022 Time: 10:07 Bed 2 Private MD: Diagnosis: Pain in left hip;Pain in right hip;Left hip hematoma;Left facial contusion Presentation: 03/07 10:13 Chief complaint: Friend and/or Co-Worker states: all from toilet this morning, c/o left iw hip pain from previous injury but right leg is shortened and externally rotated, pt has old bruising throughout let side of body from previous falls. 10:13 Acuity: ETHEL 2 iw 10:14 Method Of Arrival: EMS: [facility] iw 10:15 Care prior to arrival: Splint applied. Mechanism of Injury: Fall. Trauma event details: iw Injury occurred in the [facility], Injury occurred: in an institution. Injury occurred: March 07, 2022. 11:45 Coronavirus screen: At this time, the client does not indicate any symptoms associated iw with coronavirus-19. Ebola Screen: Patient negative for fever greater than or equal to 101.5 degrees Fahrenheit, and additional compatible Ebola Virus Disease symptoms Patient denies exposure to infectious person. Patient denies travel to an Ebola-affected area in the 21 days before illness onset. No symptoms or risks identified at this time. Initial Sepsis Screen: Does the patient meet any 2 criteria? No. Patient's initial sepsis screen is negative. Does the patient have a suspected source of infection? No. Patient's initial sepsis screen is negative. Risk Assessment: Do you want to hurt yourself or someone else? Patient reports no desire to harm self or others. Onset of symptoms was March 07, 2022. Trauma Activation: Alert Physician: ED Physician; Name: Dr. Vickers; Notified At: 10:15; Arrived At: 10:15 Physician: General Surgeon; Name: N/A; Notified At: 10:15; Arrived At: 10:15 Physician: Radiology; Name: none; Notified At: 10:15; Arrived At: 10:16 Physician: Respiratory; Name: N/A; Notified At: 10:15; Arrived At: 10:16 Physician: Lab; Name: N/A; Notified At: 10:15; Arrived At: 10:16 Historical: - Allergies: 10:16 No Known Allergies; iw - Home Meds: 10:16 alprazolam 0.25 mg Oral tab 1 tab BID for Anxiety [Active]; aspirin 81 mg Oral chew 1 iw tab once daily [Active]; atorvastatin 40 mg Oral tab 1 tab once daily [Active]; benazepril 40 mg Oral tab 1 tab once daily [Active]; diltiazem HCl 240 mg Oral Tb24 1 tab once daily [Active]; hydrocodone-acetaminophen 5-325 mg Oral tab 1 tab every 6 hours for Pain [Active]; lutein 20 mg Oral cap daily [Active]; spironolactone 25 mg Oral tab 1 tab once daily [Active]; rivastigmine tartrate 4.5 mg Oral cap 1 cap 2 times per day [Active]; - PMHx: 10:16 Acute Kidney Failure; Anxiety; CHF; COPD; Dementia; Heart Murmur; HTN; Hyperlipidemia; iw macular degeneration; NSTEMI; vit d deficiency; Screenin:18 Abuse screen: Denies threats or abuse. Denies injuries from another. Tuberculosis iw screening: No symptoms or risk factors identified. Vital Signs: 10:10 BP 123 / 67; Pulse 89; Resp 16; Temp 97.6; Pulse Ox 98% on R/A; iw 11:12 BP 120 / 51; Pulse 71; Resp 16; Pulse Ox 100% on R/A; iw [place] Coma Score: 10:18 Eye Response: spontaneous(4). Verbal Response: oriented(5). Motor Response: obeys iw commands(6). Total: 15. Trauma Score (Adult): 10:10 Eye Response: spontaneous(1); Verbal Response: oriented(1); Motor Response: obeys iw commands(2); Systolic BP: > 89 mm Hg(4); Respiratory Rate: 10 to 29 per min(4); Angelica Score: 15; Trauma Score: 12 ED Course: 10:07 Patient arrived in ED. iw 10:09 David Vickers DO is Attending Physician. ms3 10:14 Triage completed. iw 10:18 Patient has correct armband on for positive identification. iw 10:22 CT Head C Spine In Process Unspecified. EDMS 10:34 XRAY Chest (1 view) In Process Unspecified. EDMS 10:34 Hip Bilateral With Pelvis In Process Unspecified. EDMS 10:44 Linnea Hernandez, RN is Primary Nurse. iw 10:49 Linnea Hernandez RN is Primary Nurse. iw 12:12 CT Pelvis wo Cont In Process Unspecified. EDMS 12:22 Spine Lumbar Wo Con In Process Unspecified. EDMS 12:56 Chapincito Lowery MD is Referral Physician. ms3 Administered Medications: 11:21 Drug: morphine 2 mg Route: IVP; Infused Over: 4 mins; Site: right antecubital; iw 12:33 Drug: morphine 2 mg Route: IVP; Infused Over: 4 mins; Site: right antecubital; iw Outcome: 12:57 Discharge ordered by MD. ms3 13:45 Discharged to home via ambulance, with family. iw 13:45 Condition: good 13:45 Discharge instructions given to family, Instructed on discharge instructions, follow up and referral plans. medication usage, Demonstrated understanding of instructions, follow-up care, medications, Prescriptions given X 1. 13:48 Patient left the ED. iw Signatures: Dispatcher [employer] Linnea Gillespie RN RN iw David Vickers DO DO ms3
[2022-03-07 13:52] VITALS: TEMP 97.6
[2022-03-07 13:53] VITALS: BP 120/51; O2SAT 100
== END 2022-03-07 13:48 | disposition home or self-care (01) ==
LOC: ER 10:06
DX: S70.02XA Contusion of left hip, initial encounter (principal); S00.83XA Contusion of other part of head, initial encounter; M25.551 Pain in right hip; I10 Essential (primary) hypertension; I50.9 Heart failure, unspecified; F03.90 Unspecified dementia, unspecified severity, without behavioral disturbance, psychotic disturbance, mood disturbance, and anxiety; F41.9 Anxiety disorder, unspecified; Z79.82 Long term (current) use of aspirin
CPT/HCPCS: 85025; 80048; 36415; 72131; 70450; 72125; 72192; 71045; 73521; J2270 ×2; 96374; 99284